=== PATIENT | male | born 1945 | race Caucasian/White ===

== ENCOUNTER 2023-04-06 14:55 | Outpatient (CLI) | payer OTHER, SELFPAY ==
--- NOTE | 2023-04-06 15:30 | CRLHL7_ITS ---
For Patients: As a result of the Century Cures Act, medical imaging exams and procedure reports are released immediately into your electronic medical record. You may view this report before your referring provider. If you have questions, please contact your health care provider. Indication: r/o recurrent ventral hernia to R of umbilicus, ABD PAIN Technique: CT Abdomen/Pelvis W/ISOVUE [id number] Please note that all CT scans at this facility use dose modulation, iterative reconstruction, and/or weight-based dosing when appropriate to reduce radiation dose to as low as reasonably achievable. Comparison: 08/06/2021 Findings: Calcifications in the coronary arteries. Trace pericardial effusion. Mild atelectasis/scarring in both lung bases. Small Bochdalek`s hernia contain fat on the right. No free intraperitoneal air. Diffuse low attenuation of the hepatic parenchyma. The gallbladder is filled with stones, as before. The spleen is within normal limits. Normal pancreas. The adrenal glands are normal. The kidneys are within normal limits. Atherosclerotic changes. No aneurysm. No hiatal hernia. The bladder is normal. No bowel obstruction. Excess stool in the cecum. No adenopathy. Similar appearance of the jejunum. Resolution of previously noted fluid within subcutaneous tissues of the abdominal wall in the midline. Supraumbilical abdominal wall hernia noted measuring 2.1 cm. Degenerative changes. No fracture. Impression: Postop changes to the anterior abdominal wall with resolution of previously noted fluid collections. Defect in the supraumbilical abdominal wall noted contain fat measuring 2.2 cm. Excess stool in the cecum consistent with cholelithiasis. Cholelithiasis, unchanged. Similar appearance of the jejunum. No mechanical bowel obstruction. Please note that all CT scans at this facility use dose modulation, iterative reconstruction, and/or weight-based dosing when appropriate to reduce radiation dose to as low as reasonably achievable. Dictated by Jordan Farah MD @ 04/07/2023 11:28:06 AM (Electronically Signed)
[2023-04-06 15:33] LABS: Creatinine* 0.6 mg/dL (0.5-1.5); Estimated Glomerular Filt Rate 99 ml/min
== END 2023-04-06 14:56 | disposition home or self-care (01) ==
PROVIDERS: Visit Provider Surgery
DX: R10.9 Unspecified abdominal pain (principal); K80.20 Calculus of gallbladder without cholecystitis without obstruction
CPT/HCPCS: 36415; 74177; 82565; Q9967

== ENCOUNTER 2023-05-17 09:09 | Day surgery (SDC) | payer OTHER, SELFPAY ==
[2023-05-17] VITALS (18 sets, daily range): BP systolic 117–166; BP diastolic 68–104; PULSE 58–78; RESP 12–20; TEMP 36.3–36.8; O2SAT 92–98; BMI 26.9
[2023-05-17] MEDS: LACTATED RINGERS 1000 ML 1,000 ML 100 ML IV (09:45)
[2023-05-17] MEDS: SODIUM CHLORIDE 0.9 % (FLUSH) 10 ML SYRINGE IVF (09:45)
[2023-05-17] MEDS: CEFAZOLIN 2 GM INJ IVP (10:08)
--- NOTE | 2023-05-17 11:18 | W.ANESCHARGE ---
Anesthesia Charges Start Date/Time Anesthesia Start Date: 05/17/23 Anesthesia Start Time: 09:57 Stop Date/Time Anesthesia Stop Date: 05/17/23 Anesthesia Stop Time: 12:45 Summary Extremes of Age - Over 70 or under 1: GLUE SPREADER
[2023-05-17] MEDS: BUPIVACAINE 0.25% 30 ML INJECTION (12:09)
--- NOTE | 2023-05-17 12:39 | P.GSOP_ITS ---
Operative Note Date of procedure: 05/17/23 Pre-op diagnosis: 1. Symptomatic recurrent incisional hernia. Post-op diagnosis: Same Type of Procedure: 1. Open incisional hernia repair with mesh 8 x 14 cm. Indications: 78-year-old male was seen in clinic with pain just to the right of his umbilicus. Patient had previous exploratory laparotomy with small-bowel resection in 2020. He subsequently developed an incisional hernia and underwent an open ventral hernia repair in June of 2021. Patient had large Ventralex ST mesh placed at that time. After the incisional hernia repair, patient had prolonged coughing and developed hematoma. Several months after he recovered from his surgery, he started to develop pain to the right of the his umbilicus. This was usually worse with strenuous activity and heavy lifting. The pain was getting more frequent and more bothersome. On clinical exam with the patient standing up there was an abdominal wall protuberance noted. Patient had redundant soft tissue around his umbilicus and was difficult to tell if there was hernia recurrence. There was a point tenderness to palpation just to the right of his umbilicus. An abdominal CT was obtained that showed mesh presents just immediately superior to the umbilicus with a hernia defect above the mesh. No intra-abdominal organs were incarcerated in the hernia. Given patient's clinical history and his symptoms, an open ventral hernia repair with mesh was recommended. The procedure was discussed in detail. The risks associated procedure including infection, bleeding, injury to intra-abdominal organs, and hernia recurrence, as well as prolonged pain were all discussed with the patient, and he agreed to proceed. Procedure Description: After discussing the risks and benefits of the procedure, the patient signed informed consent.? The operative site was marked and the patient was brought to the operating room and placed on the operating table in supine position.? Care was taken to pad the patient's pressure points.?? The patient was then intubated by anesthesia.?? The operative site was then prepped and draped in the usual sterile fashion.? A time-out was then performed. A vertical surgical incision was made superior to well-healed surgical scar. Dermis and subcutaneous fat were divided with cautery down to the hernia sac. The fascial defect was immediately identified. Soft tissues around the fascial defect were divided and dissected with cautery. Just inferior to the main fascial defect there was a smaller defect identified. The fascia in between 2 defect was then divided to create a common fascial defect. A then proceeded with developing a retro rectus space in the region plane superiorly. This was done with cautery. This plane was developed circumferentially. On the left muscle was attached to the posterior sheath and that was mobilized with cautery. Scar tissue was noted in the subcutaneous fat and near the fascia just superior to the umbilicus from patient's previous hernia repair. The previous mesh was palpated just superior to the umbilicus and preperitoneal space just posterior to the mesh was developed bluntly and with cautery. The main fascial defect was approximately 5 cm in diameter. The fascia was weak to palpation especially on the right side of the abdomen. When the retrorectus space was developed, peritoneum was opened and the peritoneum was palpated bluntly with the finger. Fatty adhesions were palpated to the right of the umbilicus but those were not taken down since our dissection was in the retrorectus space. The peritoneal opening was then oversewn with 3-0 Vicryl suture. Hemostasis again was achieved with cautery. The posterior sheath was closed with a running Vicryl suture. A Ventrio mesh 8 x 14 cm was then used for hernia repair. This mesh was oval- shaped and was placed into the retrorectus space with the long end in the medial-lateral direction. The mesh was secured to the fascia with 0-0 Nurolon transfascial sutures. Bleeding was noted from the left superior transfascial suture and that was oversewn with a Vicryl stitch. Local anesthetic was injected into the anterior fascia and subcutaneous fat. The weakened fascia was then oversewn with [id number] 0-0 Prolene sutures over the mesh. Minimal tension was noted in the center of this fascial closure. Subcutaneous fat was then reapproximated with Vicryl sutures. Dermis was closed with interrupted 3-0 Vicryl sutures. The skin was closed with a running 4-0 Monocryl stitch. Steri- Strips and sterile pressure dressings were placed over the incision. ? The patient was then woken and transported to the recovery area in stable condition. ? The patient tolerated the procedure well. Findings: The common fascial defect was approximately 5 cm in diameter. Scar was noted inferiorly from previous repair. The previously placed mesh was palpated and no fascial defect were identified right and left of the previously placed mesh. This new mesh that was placed overlapped the old mesh. Anesthesia: GETA Surgeon: David Thomas MD Estimated blood loss (mL): 10 Condition: stable Disposition: PACU
--- NOTE | 2023-05-17 12:39 | W.PM.H&PU ---
History & Physical Update History & Physical Update H&P Reviewed and patient assessed: No changes noted
--- NOTE | 2023-05-17 13:08 | W.ANESCHARGE ---
Anesthesia Charges Start Date/Time Anesthesia Start Date: 05/17/23 Anesthesia Start Time: 09:57 Stop Date/Time Anesthesia Stop Date: 05/17/23 Anesthesia Stop Time: 12:45 Summary Extremes of Age - Over 70 or under 1: MDA
--- NOTE | 2023-05-17 13:12 | SUR.PHASEI ---
patient meets pacu discharge criteria
[2023-05-17] MEDS: fentaNYL 100 MCG/2 ML inj 50 MCG IVP (13:30)
[2023-05-17] MEDS: LACTATED RINGERS 1000 ML 1,000 ML 75 ML IV (14:53)
[2023-05-17] MEDS: ACETAMINOPHEN 325 MG TABLET 650 MG PO (15:14)
[2023-05-17] MEDS: BENZOCAINE/MENTHOL 1 EACH LOZENGE MUCOUS MEM (17:29)
[2023-05-17] MEDS: HYDROCODONE-ACETAMIN 5-325 MG 1 TAB PO (17:33)
--- NOTE | 2023-05-17 19:24 | PC.NURSE ---
Nursing Care Hours: [id number] Pt this shift calm and cooperative, alert and oriented. Arrived from same day surgery, started hourly vitals. VSS. Pt hesitant to use opioids for pain control d/t getting really constipated last time. Added senna to MAR and discussed drinking water and walking frequently. Attempted to use just acetaminophen but pain was not relived and BP continuing to rise. Agreeable to use one [place] tab. Ice on abdomen. Dressing CDI. BS hypoactive, denies nausea. Up to bathroom x2.
[2023-05-17] MEDS: SENNOSIDES/DOCUSATE TABLET 1 TAB PO (20:48)
[2023-05-18] MEDS: HYDROCODONE-ACETAMIN 5-325 MG 1 TAB PO ×2 (02:16→09:07)
[2023-05-18 02:24] VITALS: BP 144/83; PULSE 75; RESP 20; TEMP 36.7; O2SAT 94
[2023-05-18] MEDS: LACTATED RINGERS 1000 ML 1,000 ML 75 ML IV (04:15)
[2023-05-18 08:15] VITALS: BP 130/85; PULSE 66; RESP 16; TEMP 36.9; O2SAT 92
--- NOTE | 2023-05-18 08:51 | P.DS_ITS ---
DS: Providers Provider Date Seen: 05/18/23 Primary care physician: Not a Local Provider Attending Physician on discharge: David Thomas MD DS: Diagnosis Discharge Diagnosis (1) S/P repair of ventral hernia: Status: Acute Problem details: with large ventralex mesh(retrorectus) 2020 and 2022 DS: Summary Hospital Course Hospital Course: 78-year-old male was admitted to the hospital for pain control after he u nderwent an open recurrent incisional hernia repair with mesh. Patient did well overnight. He urinated multiple times. He tolerated clears. His pain was controlled with p.o. medications. Time Spent with Patient Time attestation: Total time spent providing and/or coordinating discharge services: Exam Narrative: Exam Narrative: Abdomen is soft, not tender to palpation, not distended, surgical dressing over the midline incision is clean and dry. The binder was placed back on. Const: Vital Signs, click to edit/add: Vital Signs - 24 hr 05/17/23 09:31 05/17/23 12:40 05/17/23 12:45 Temperature 97.4 F L 97.8 F Pulse Rate 60 71 69 Pulse Rate [Right Pulse Oximeter] Respiratory Rate 16 16 14 Blood Pressure 162/104 H 117/68 128/71 Blood Pressure [Le ft Arm] Blood Pressure [Ri ght Arm] Pulse Oximetry 97 93 94 Oxygen Delivery Me thod Room Air Nasal Cannula Oxygen Flow Rate 2 1 05/17/23 12:50 05/17/23 12:55 05/17/23 13:00 Temperature Pulse Rate 70 65 65 Pulse Rate [Right Pulse Oximeter] Respiratory Rate 12 12 14 Blood Pressure 123/74 126/74 124/73 Blood Pressure [Le ft Arm] Blood Pressure [Ri ght Arm] Pulse Oximetry 94 94 92 Oxygen Delivery Me thod Room Air Oxygen Flow Rate 05/17/23 13:05 05/17/23 13:10 05/17/23 13:16 Temperature 98.2 F 98.0 F Pulse Rate 62 65 60 Pulse Rate [Right Pulse Oximeter] Respiratory Rate 16 16 16 Blood Pressure 126/70 126/73 129/75 Blood Pressure [Le ft Arm] Blood Pressure [Ri ght Arm] Pulse Oximetry 92 93 94 Oxygen Delivery Me thod Room Air Oxygen Flow Rate 05/17/23 13:30 05/17/23 13:45 05/17/23 14:00 Temperature Pulse Rate 59 L 60 59 L Pulse Rate [Right Pulse Oximeter] Respiratory Rate 16 16 16 Blood Pressure 127/77 124/80 130/75 Blood Pressure [Le ft Arm] Blood Pressure [Ri ght Arm] Pulse Oximetry 94 92 98 Oxygen Delivery Me thod Room Air Room Air Nasal Cannula Oxygen Flow Rate 05/17/23 14:15 05/17/23 14:30 05/17/23 15:30 Temperature 97.6 F 98 F Pulse Rate 58 L Pulse Rate [Right Pulse Oximeter] 59 L 64 Respiratory Rate 16 12 14 Blood Pressure 134/80 Blood Pressure [Le ft Arm] 147/85 H Blood Pressure [Ri ght Arm] 139/84 Pulse Oximetry 98 96 96 Oxygen Delivery Me thod Nasal Cannula Room Air Room Air Oxygen Flow Rate 05/17/23 16:30 05/17/23 17:30 05/17/23 19:00 Temperature 97.9 F Pulse Rate Pulse Rate [Right Pulse Oximeter] 70 71 78 Respiratory Rate 20 20 18 Blood Pressure Blood Pressure [Le ft Arm] 151/94 H 161/92 H Blood Pressure [Ri ght Arm] 166/96 H Pulse Oximetry 96 95 97 Oxygen Delivery Me thod Room Air Room Air Room Air Oxygen Flow Rate 05/18/23 02:24 Temperature 98.0 F Pulse Rate Pulse Rate [Right Pulse Oximeter] 75 Respiratory Rate 20 Blood Pressure Blood Pressure [Le ft Arm] Blood Pressure [Ri ght Arm] 144/83 H Pulse Oximetry 94 Oxygen Delivery Me thod Room Air Oxygen Flow Rate Discharge Plan Discharge Disposition: Home, Self-Care Discharging Surgeon: David Thomas Follow-Up Appointment: 2 weeks NF Prescriptions: New hydrocodone-acetaminophen 5-325 mg tablet 1 tab PO Q6H PRN (Reason: pain) Qty: 25 0RF Continued atorvastatin [Lipitor] 80 mg tablet 80 mg PO DAILY aspirin 81 mg tablet,delayed release (DR/EC) 81 mg PO DAILY thiamine HCl (vitamin B1) 100 mg tablet 100 mg PO DAILY ipratropium bromide 42 mcg (0.06 %) spray,non-aerosol 2 spray INTRANASAL 3XD PRN No Action lisinopril 20 mg tablet 20 mg PO DAILY cholecalciferol (vitamin D3) 25 mcg (1,000 unit) capsule 25 mcg PO DAILY Activity Level: No strenuous activity Activity Detail: No strenuous activity or lifting more than 15-20 lbs for 4-6 weeks. Discharge Diet: Regular Patient Instructions: Open Herniorrhaphy (DC), Surgical Site Infections (DC), Deep Sedation (DC), Post-Operative Instructions: Hernia Repair Forms: Work/School Release Follow-up: David Thomas MD [Staff Physician] - Provider,Not a Local [Primary Care Provider] - Discharge Orders: Discharge Order (Routine); Ordered 05/18/23 Ordered By: David Thomas
[2023-05-18] MEDS: ATORVASTATIN CALCIUM 40 MG TABLET 80 MG PO (09:06)
[2023-05-18] MEDS: SENNOSIDES/DOCUSATE TABLET 1 TAB PO (09:07)
[2023-05-18] MEDS: lisinopriL 20 MG TABLET PO (09:07)
[2023-05-18] MEDS: polyethylene glycoL 3350 17 GM PACK PO (11:00)
--- NOTE | 2023-05-18 14:11 | PC.NURSE ---
Please see eMar for meds provided to this patient. Eval by Dr. Weir, IV to SL. Pt UAL in room and hallway w/o increased c/o pain. Abdominal binder intact over CDI dressing. Pt and spouse verbalized understanding of d/c instructions, new RX, home meds, f/up appt and sx to report urgently to physician. Pt ambulatory d/c to own home with personal belongings and [place] friend as transportation.
== END 2023-05-18 11:25 | disposition home or self-care (01) ==
LOC: OR 09:11 → MEDSURG 09:14
PROVIDERS: Visit Provider Surgery
PROC: (CPT 49615; principal; 2023-05-17 10:30)
DX: K43.2 Incisional hernia without obstruction or gangrene (principal); G89.18 Other acute postprocedural pain
CPT/HCPCS: 49615; 00752; 36415; 51798; 74019; 74177; 80048; 81001; 83605; 85025; 87493; 99100; 99284; 99285; A9270; C1781; J0330; J0665; J0690; J1100; J2405; J2704; J3010; J3490; J7042; J7120; Q9967

== ENCOUNTER 2023-05-20 17:04 | Inpatient (IN) | payer MEDICARE, SELFPAY ==
[2023-05-20 17:11] VITALS: BP 138/83; PULSE 68; RESP 16; TEMP 36.9; O2SAT 94; BMI 27.1
--- NOTE | 2023-05-20 17:36 | ED.GENADULT ---
HPI - General Adult General Chief complaint: Urogenital Problems, Male Stated complaint: Post op difficulty urinating, heartburn Time Seen by Provider: 05/20/23 17:14 History of Present Illness HPI narrative: This 78-year-old male comes in reporting dysuria symptoms of urinary retention. He had a hernia repair 3 or 4 days ago and was doing well but started taking oxycodone and feels that this is contributed to difficulty passing urine. He states that he was able to of have a small amount come forth and noted that it seemed to be red with some blood. He has not had any fevers. He states that his pain is controlled despite not taking narcotics any longer. He does report a remote history of abdominal problems also when taking codeine. Related Data Home Medications Medication Instructions Recorded Confirmed aspirin 81 mg tablet,delayed 81 mg PO DAILY 11/17/22 05/20/23 release atorvastatin 80 mg tablet (Lipitor) 80 mg PO DAILY 11/17/22 05/20/23 ipratropium bromide 42 mcg (0.06 2 spray intranasal 3XD PRN 05/16/23 05/20/23 %) nasal spray thiamine HCl (vitamin B1) 100 mg 100 mg PO DAILY 05/16/23 05/20/23 tablet cholecalciferol (vitamin D3) 25 25 mcg PO DAILY 05/17/23 05/20/23 mcg (1,000 unit) capsule lisinopril 20 mg tablet 20 mg PO DAILY 05/17/23 05/20/23 Previous Rx's Medication Instructions Recorded hydrocodone 5 mg-acetaminophen 325 1 tab PO Q6H PRN pain #25 tabs 05/17/23 mg tablet Allergies Allergy/AdvReac Type Severity Reaction Status Date / Time codeine Allergy Severe Gastrointestinal Verified 05/20/23 17:19 Upset Review of Systems Status of ROS: Reports: 10 or more systems reviewed and unremarkable except as noted in History and below Narrative: Constitutional: No fevers, no weight gain or loss. Eyes: No discharge. No vision changes. HENT: No congestion, no sore throat, no ear pain. Cardiovascular: No chest pain, no palpitations. Respiratory: No shortness of breath, no wheezes, no cough. Gastrointestinal: No abdominal pain, no vomiting, no diarrhea. Genitourinary: Urinary retention and some hematuria. Musculoskeletal: Normal range of motion. Skin: No rashes, no pruritis. Neurological: No dizziness, weakness, sensory change, speech change. Endo/Heme/Allergies: No bruising or bleeding. No polydipsia. Pysch: no suicidality, no anxiety, no insomnia. All other systems reviewed and are negative. [facility] Medical History (Updated 05/20/23 @ 19:42 by Gianfranco Cole MD) Gilbert's syndrome ?E80.4 - Gilbert syndrome (ICD-10) Diverticular disease of small intestine ?K57.10 - Diverticulosis of small intestine without perforation or abscess without bleeding (ICD-10) Coronary artery disease ?I25.10 - Atherosclerotic heart disease of [place] coronary artery without angina pectoris (ICD-10) Atrial fibrillation with rapid ventricular response ?I48.91 - Unspecified atrial fibrillation (ICD-10) Bronchitis ?J40 - Bronchitis, not specified as acute or chronic (ICD-10) Surgical History (Updated 05/18/23 @ 08:52 by David Thomas MD) S/P repair of ventral hernia ?Z98.890 - Other specified postprocedural states (ICD-10) ?Z87.19 - Personal history of other diseases of the digestive system (ICD-10) Status post surgery ?Z98.890 - Other specified postprocedural states (ICD-10) Status post exploratory laparotomy ?Z98.890 - Other specified postprocedural states (ICD-10) Social History (Updated 03/30/23 @ 10:02 by Alan Mcmullen) Narrative: daily consumption of alcohol What is your current living situation?: I presently have a place to live Problems where you live: no known problems In the past 12 months, utilities in danger of being shut off: no In past 12 months, lack of transportation kept you from medical appts, meetings, work, or getting things needed for daily living: no In the past 12 mos, have been you worried that your food would run out before you had money to buy more?: never true In the past 12 mos, the food you bought just didn't last and you didn't have money to buy more?: never true Highest level of school completed/degree received: high school graduate Smoking Status: Never smoker Do you use any of these nicotine containing products: None Second hand tobacco smoke exposure: No How often do you have a drink containing alcohol: never How often do you have six or more drinks on one occasion: Never AUDIT-C Alcohol total score: 0 Non-prescribed substance use: denies use Caffeine: Yes How often does anyone, including family, friends and others, physically hurt you: never How often does anyone, including family, friends and others, insult or talk down to you: never How often does anyone, including family, friends and others, threaten you with harm: never How often does anyone, including family, friends and others, scream or curse at you: never service: Yes Exam Narrative: Exam Narrative: Constitutional: Well-developed, well-nourished, no acute distress. HEENT: Normocephalic, atraumatic. Neck: Normal range of motion. Nontender. Supple. Heart: Regular. No murmurs. Normal rate. Intact distal pulses. Lungs: Clear to auscultation. No chest discomfort. No wheezes, rhonchi, or rales. Abdomen: Normal bowel sounds. He is wearing an abdominal binder status post hernia repair in the abdomen. Genitalia: Deferred. Back: No midline tenderness. Normal range of motion. Extremities: Normal range of motion. No injury. Skin: Intact. No rash. Warm. No erythema or pallor. Neurologic: No altered sensation. No weakness. Alert and oriented. Psychiatric: No suicidality. No anxiety or depression. No insomnia. Nursing notes and vitals signs are reviewed. Const: Vital Signs, click to edit/add: Vital Signs - 24 hr 05/20/23 17:11 Temperature 98.4 F Pulse Rate [Right Pulse Oximeter] 68 Respiratory Rate 16 Blood Pressure [Ri ght Upper Arm] 138/83 Pulse Oximetry 94 Oxygen Delivery Me thod Room Air Course Vital Signs Vital signs: Initial Vital Signs Temperature 98.4 F 05/20/23 17:11 Temperature Source Temporal Artery Scan 05/20/23 17:11 Pulse Rate 68 05/20/23 17:11 Respiratory Rate 16 05/20/23 17:11 Blood Pressure 138/83 05/20/23 17:11 Blood Pressure Mean 101 05/20/23 17:11 Pulse Oximetry 94 05/20/23 17:11 Oxygen Delivery Method Room Air 05/20/23 17:11 Vital Signs Temperature 98.4 F 05/20/23 17:11 Pulse Rate 68 05/20/23 17:11 Respiratory Rate 16 05/20/23 17:11 Blood Pressure 138/83 05/20/23 17:11 Pulse Oximetry 94 05/20/23 17:11 Oxygen Delivery Method Room Air 05/20/23 17:11 Temperature 98.4 F 05/20/23 17:11 Pulse Rate 68 05/20/23 17:11 Respiratory Rate 16 05/20/23 17:11 Blood Pressure 138/83 05/20/23 17:11 Pulse Oximetry 94 05/20/23 17:11 Oxygen Delivery Method Room Air 05/20/23 17:11 Medical Decision Making MDM Narrative Medical decision making narrative: This patient comes in thinking that he has urinary retention. He did have a hernia surgery recently and states that he did take a few tablets of oxycodone. He reports a previous surgical situation where he was admitted into the hospital until his bowels started working again. A bladder scan is obtained which shows no sign of urinary retention. There was 15 or 20 mL of urine in the bladder. I did obtain a abdominal x-ray which does show air-fluid levels typical of a ileus or obstruction. I did speak with the surgeon on-call, Dr. Whitney, who will follow him in the hospital. A IV is established and labs are acquired. The patient is going to receive CT scan imaging of the abdomen and pelvis for further evaluation of this. And I did speak with Dr. Zuluaga who agrees to his admission into the hospital. Lab Data Labs: Lab Results 05/20/23 Range/Units 17:52 Urine Color Yellow (Yellow) Urine Appearance Clear (Clear) Urine pH 5.5 (5.0-8.5) Ur Specific [place] >= 1.030 (1.000-1.030) Urine Protein Trace A (Negative) Urine Glucose (UA) Negative (Negative) Urine Ketones 3+ A (Negative) Urine Blood Trace-lysed A (Negative) Urine Nitrite Negative (Negative) Urine Bilirubin 2+ A (Negative) Urine Urobilinogen 1.0 (0.2-1.0) Ur Leukocyte Esterase Negative (Negative) Urine RBC 0-2 (0-2) Urine WBC 0-2 (0-5) Ur Squamous Epith Cells Few (None-Few) Urine Bacteria None (None) Imaging Data Abdominal x-ray: Radiologist's impression: Free intraperitoneal air. Has there been recent surgery?. Air-filled moderately dilated predominantly small bowel loops with multiple air-fluid levels could represent ileus or obstruction. Discharge Plan Discharge Clinical Impression: Ileus, postoperative Patient Disposition: Admitted As Observation Condition: Unchanged Prescriptions: No Action atorvastatin [Lipitor] 80 mg tablet 80 mg PO DAILY aspirin 81 mg tablet,delayed release (DR/EC) 81 mg PO DAILY thiamine HCl (vitamin B1) 100 mg tablet 100 mg PO DAILY ipratropium bromide 42 mcg (0.06 %) spray,non-aerosol 2 spray INTRANASAL 3XD PRN hydrocodone-acetaminophen 5-325 mg tablet 1 tab PO Q6H PRN (Reason: pain) Qty: 25 0RF lisinopril 20 mg tablet 20 mg PO DAILY cholecalciferol (vitamin D3) 25 mcg (1,000 unit) capsule 25 mcg PO DAILY Follow Up/Referrals: Provider,Not a Local [Primary Care Provider] -
--- NOTE | 2023-05-20 17:45 | CRLHL7_ITS ---
For Patients: As a result of the Century Cures Act, medical imaging exams and procedure reports are released immediately into your electronic medical record. You may view this report before your referring provider. If you have questions, please contact your health care provider. INDICATION: Ileus TECHNIQUE: Three view abdomen. FINDINGS: Multiple air-fluid levels and a dilated air-filled bowel small bowel measures 4.6 centimeters. There is dilated loop in the right abdomen which could be small bowel or colon lack of bowel gas distally. There is free air present. Impression: 1. Free intraperitoneal air. Has there been recent surgery?. Air-filled moderately dilated predominantly small bowel loops with multiple air-fluid levels could represent ileus or obstruction. Dictated by Elizabeth La MD @ 05/20/2023 6:47:07 PM (Electronically Signed)
--- NOTE | 2023-05-20 17:47 | ED.NURSE ---
Bladder scanned and very small amount noted in the bladder. 10-15 cc of urine. patient is attempting to leave a UA and updated Dr. Cole of patient not passing any flatus.
--- OUTSIDE RECORDS SUMMARY | 2023-05-20 18:11 | XMS_ITS | Continuity of Care Document ---
Author Name Unknown Organization [facility] Address [address] [address] [place] [address] Phone Care Team Providers Care Acetylene Operator Name Role Phone Aureliano Olmedo MD Unavailable Allergies, Adverse Reactions, Alerts Substance Reaction Status Criticality codeine Active No Information Medications Medication Instructions Dosage Effective Dates (start - stop) Status Comments Vitamin D3 1,000 unit capsule take 1 by Oral route every day 1 - Active Lipitor 80 mg tablet take 1 tablet by oral route every day 80 MG - Active Vitamin C 500 mg capsule,extended release take 1 Capsule by Oral route every day 1 Capsule - Active Aller-ease 60 mg tablet take 1 tablet by oral route every day 60 MG - Active aspirin 81 mg tablet,delayed release take 1 tablet by oral route every day 81 MG - Active Foltrate 0.5 mg-1 mg tablet take 1 tablet by oral route every day 1.00 tablet - Active Glucosamine 500 mg tablet take by Oral route every day Not Available - Active Allergy 25 mg tablet take 1 Tablet by oral route every day as needed 25 MG - No Longer Active MiralaxBisacodylMagCit Colon Prep Use as directed - No Longer Active Vitamin D2 50,000 unit capsule take 1 by Oral route every week 1 - No Longer Active Lipitor 10 mg tablet take 1 Tablet by ORAL route every day 10 MG - No Longer Active Procedures Procedure Date Colonoscopy Flex; W/remov Les- 17 Level Iv-surg Path Gross/micro 17 Colonoscopy Flex; W/remov Les- 15 Colonoscopy W/Submucosal Injection Level Iv-surg Path Gross/micro 15 Offic/outpt E&m New Mod-wy Advance Directives Directive Yes / No Effective Date File Name No Information Encounters Encounter Description Practice Location Reason(s) For Visit Diagnoses Date Provider Providers Copied on Encounter [facility] [place], [address] [address], [place], [id number], [place] tel:[phone] [facility] Colorectal polypsDiverticulo sis of large intestine without hemorrhagePersona l history of colonic polypsEncounter for screening for malignant neoplasm of colonBenign neoplasm of transverse colonBenign neoplasm of descending colonPersonal history of colonic polyps 7 Honorio Bedoya. [address] [facility], [facility] [address], [place], [place], [address] , [place]. tel:[phone] Referring Provider: Referral Self, USE FOR SELF REFERRALS. [facility] [place], [address] [address], [place], [id number], [place] tel:[phone] [facility] No Information 7 Moi Fink. [address] [facility], [place], [place], [id number] , [place]. tel: [phone] [facility] [place], [address] [address], [place], [id number], [place] tel:[phone] [facility] Colon polypBenign Neoplasm Colon 5 Honorio Bedoya. [address] [facility], [address], [place], [place], [id number] , [place]. tel:[phone] Referring Provider: Aaron Elliott, [address], [place], [address]. tel:[phone] Offic/outpt E&m [facility] [place], [address] [address], [place], [id number], [place] tel:[phone] [facility] GI Symptoms or Concerns (chief complaint) HoarsenessColon Cancer Screening 5 Honorio Bedoya. [address] [facility], [facility] [address], [place], [place], [id number] , [place]. tel:[phone] Referring Provider: Aaron Elliott, [address], [place], [address]. tel:[phone] Family History Family Member Type Diagnosis Age At Onset Daughter Problem (finding) Alive and well Sister Problem (finding) Alive and well Mother Problem (finding) Brother Problem (finding) Alive and well Son Problem (finding) Alive and well Father Problem (finding) Immunizations Vaccine Date Status Comments Influenza virus vaccine, injectable, quadrivalent, split virus, preservative free, 3 years or older Fluarix, Flulaval or Fluzone Quad administered Note: Invalid docume nted admin date was NULL/NULL/2014. ; Source: Other Provider Pneumo (2 yrs or older)(PPV) administered Note: Invalid documented admin date was NULL/NULL/2014. ; Source: Other Provider Payers Payer name Insurance type Covered alliance party ID Authoriza tion(s) [employer] [id number] Social History Type Description Quantity Date Captured Comments Alcohol Use Details Unknown Caffeine Use Details Unknown Tobacco Use Status No Information Smoking Status Former smoker Sex Male Vital Signs Date / Time: Height Weight BMI Pulse Rate Blood Pressure Temperature Respiratory Rate Body Surface Area Head Circumference Head Circ. Percentile Wt./Mick. Percentile BMI percentile Pulse Ox Inhaled Ox 9:12 AM 67.00 in 77.100 kg (170.00 lbs) 26.6 0 kg/m eter (2) 67 /min 135/90 mm[Hg] 0.00 F 16 /min 98 % Chief Complaint And Reason For Visit No Information Reason For Referral Reason For Referral No Information History Of Present Illness Encounter Date Complaint History Of Prese nt Illness GI Symptoms or Concerns Abram is a 69-year-old man who we are seeing because of possible reflux. By history, he was well but earlier in the year he developed what he describes as a sore throat. It was burning sensation felt above the clavicles in the neck. With these symptoms, he was seen by ENT and told that he might have reflux. He denies any symptoms or regurgitation or types of dyspepsia. No associated dysphagia.When seen by ENT, he was placed on omeprazole once a day and ranitidine. With this, actually the symptoms have abated. Again he is without other problems.I note that he has been followed by Dr. Aaron Majano in the past. He is otherwise doing well. He has had no change in bowel habits, bleeding, weight loss, jaundice, and an otherwise in good health.He is allergic to codeine. His medication list at this point includes aspirin, folic acid, glucosamine, Lipitor, omeprazole, ranitidine, and vitamin D. In terms of other medical problems, he does have a cardiac stent and hyperlipide Functional Status Date Functional Assessmen t No Information Medications Administered Medication Instructions Dosage Effective Dates (start - stop) Status Comments Allergy 25 mg tablet take 1 Tablet by oral route every day as needed 25 MG - No Longer Active Instructions Date Instruction Additional Infor mation Colon Cancer Prevention Related to Diverticulosis of large intestine without hemorrhage Colon Polyps Related to Diver ticulosis of large intestine without hemorrhage Diverticulosis/Diverticulitis Re lated to Diverticulosis of large intestine without hemorrhage Colon Cancer Prevention Related to Colon polyp Colon Polyps Related to Colon polyp Hemorrhoids Related to Colon polyp The patient's discom fort is in the neck. It really seems more ENT than reflux at this stage, however, clinically it is hard to argue that he is feeling better. I have suggested that he stop the ranitidine, and stay on the omeprazole and we can see at some point about tapering, he has only had symptoms for a few years. If his symptoms recur, then I would move towards endoscopy. He has no worrisome signs.Lastly, we talked about colon cancer screening. He actually has an appointment coming up and this can be arranged.We appreciate assisting in this patient's care. Related to Hoarseness Assessments Type Assessment Date assessment Colorectal polyps assessment Diverticulosis of large intestin e without hemorrhage assessment Personal history of colonic poly ps Patient Care Teams Name Effective Dates (start - stop) Status Members No Information
[2023-05-20 18:13] LABS: Appearance Urine Clear (Clear); Bilirubin Urine 2+ (Negative); Blood Urine Trace-lysed (Negative); Color Urine Yellow (Yellow); Glucose Urine Negative (Negative); Ketones Urine 3+ (Negative); Leukocyte Esterase Urine Negative (Negative); Nitrite Urine Negative (Negative); Protein Urine Trace (Negative); Specific Gravity Urine >= 1.030 (1.000-1.030); pH Urine 5.5 (5.0-8.5)
[2023-05-20 18:24] LABS: RBC Urine 0-2 (0-2); Squamous Epithelial Cell Urine Few (None-Few); WBC Urine 0-2 (0-5)
--- NOTE | 2023-05-20 19:01 | ED.NURSE ---
patient given permission for staff to talk to daughter so update was given. can be reached at [phone].
[2023-05-20 19:17] VITALS: BP 164/93; PULSE 71; RESP 16; O2SAT 94
--- NOTE | 2023-05-20 19:18 | CRLHL7_ITS ---
For Patients: As a result of the 21st Century Cures Act, medical imaging exams and procedure reports are released immediately into your electronic medical record. You may view this report before your referring provider. If you have questions, please contact your health care provider. INDICATION: Hernia repair on 05/17/2023. dysuria, hematuria, post op ileus v. obstruction, DIVERTICULAR DISEASE OF SMALL INTESTINE, Gilbert`s SYNDROME TECHNIQUE: CT abdomen and pelvis acquired with 82 cc Isovue 370 IV contrast. Permanently recorded images are archived. COMPARISON: CT abdomen and pelvis 04/06/2023 FINDINGS: Lower chest: Mild atelectasis in the bases of the lower lobes. Coronary artery calcification. Liver: Unremarkable. Normal in size and attenuation. No suspicious masses. Gallbladder and bile ducts: Cholelithiasis. No inflammation or biliary ductal dilation. Pancreas: Unremarkable. No mass or inflammation. Spleen: Unremarkable. Normal in size. No masses. Adrenal glands: Unremarkable. No nodules. Kidneys, Ureters, and Bladder: Unremarkable. No suspicious masses, stones, or hydronephrosis. Unremarkable ureters and bladder. GI tract: Multiple dilated loops of small bowel with air-fluid levels, predominantly in the left te abdomen. The bowel loops measure up to 3.5 cm. There is a smooth transition to decompressed distal ileum in the left lower quadrant. The colon is decompressed. No pneumatosis. Normal appendix. Vasculature: Normal caliber abdominal aorta with severe atherosclerotic calcification. Mesenteric arteries are patent. Lymph nodes: No lymphadenopathy. Peritoneum/Abdominal Wall: Small volume pneumoperitoneum. Subcutaneous emphysema and inflammatory stranding about the anterior abdominal wall, particularly the midline. Wide thin fluid collection between the anterior abdominal wall musculature and the peritoneal lining in the anterior abdomen in the midline, measuring 9.3 cm 1.0 cm, series 2, image 80. Pelvis: Prostatomegaly. Bones: Unremarkable for age. IMPRESSION: 1. Postsurgical changes of the anterior abdominal wall, compatible with recent hernia repair. Wide thin fluid collection in the surgical bed, likely represents a postoperative seroma/hematoma. Cannot entirely exclude superimposed infection/abscess. 2. Multiple dilated loops of small bowel with air-fluid levels with a smooth transition to decompressed distal ileum in the left lower quadrant. This is most compatible with a postoperative ileus. 3. Cholelithiasis. Please note that all CT scans at this facility use dose modulation, iterative reconstruction, and/or weight-based dosing when appropriate to reduce radiation dose to as low as reasonably achievable. Dictated by Jovani Sosa MD @ 05/20/2023 9:11:25 PM (Electronically Signed)
[2023-05-20 19:40] LABS: Basophils Absolute Auto 0.01 K/uL (0.00-0.30); Basophils Percent Auto 0.2 % (0.0-3.0); Eosinophils Absolute Auto 0.04 K/uL (0.00-0.50); Eosinophils Percent Auto 0.7 % (0.0-7.0); Hematocrit 37.1 % (37.0-53.0); Hemoglobin* 12.7 gm/dL (13.5-17.5); Lymphocytes Percent Auto 15.1 % (20-44); Mean Corpuscular HGB Conc 34 gm/dL (32-36); Mean Corpuscular Hemoglobin 31 pg (26-34); Mean Corpuscular Volume 90 fL (80-100); Monocytes Percent Auto 12.5 % (0.0-11.0); Neutrophils Absolute Auto 3.87 K/uL (1.7-7.0); Neutrophils Percent Auto 71.5 % (42.0-72.0); Platelet Count* 181 K/uL (140-440); RDW Coefficient of Variation % 13.7 % (11.5-15.5); Red Blood Count 4.12 m/uL (4.30-5.90); White Blood Count* 5.42 K/uL (4.50-11.00)
[2023-05-20 19:42] LABS: Slide Review Reflex No
[2023-05-20 19:49] LABS: Chloride* 96 mmol/L (96-114); Potassium* 4.5 mmol/L (3.6-5.1); Sodium* 131 mmol/L (135-149)
[2023-05-20 19:52] LABS: Anion Gap 11 mEq/L (7-15); Blood Urea Nitrogen* 17 mg/dL (7-30); Carbon Dioxide* 24 mmol/L (20-32); Creatinine* 0.6 mg/dL (0.5-1.5); Est. Creatinine Clearance* 54.05; Estimated Glomerular Filt Rate 98 ml/min
[2023-05-20 19:53] LABS: Calcium* 8.9 mg/dL (8.4-10.6); Glucose* 112 mg/dL (60-115)
--- NOTE | 2023-05-20 20:13 | ED.NURSE ---
Given report to Kelli Taylor who will resume care on the patient. Admit to room 259 via wc and belongings brought to room of pants, shirt, shoes.
[2023-05-20 21:05] VITALS: BP 165/95; PULSE 78; RESP 16; TEMP 37.2; O2SAT 98; BMI 26.3
--- NOTE | 2023-05-20 21:12 | PM.IMHP1 ---
Hospitalist- H&P: HPI History of Present Illness Date Seen: 05/20/23 Chief complaint: Post op difficulty urinating Narrative: Satnam Barfield is a 78 year old male who underwent ventral hernia repair 3 days ago is admitted through the emergency department for difficulty with abdominal distension, trouble urinating and having no bowel movement since surgery. Patient had previous hernia repair a couple years ago with complications. He had a hematoma on subsequently developed a recurrent hernia. Procedure was performed [address] Thomas. He felt fine after surgery and went home the next day, Tuesday. Later on Tuesday he started developing mid abdominal pain and abdominal distension. He has not been passing gas or had a bowel movement since surgery. He was also noting that his urine was quite dark and he was having difficulties voiding. He has taken oxycodone 5 mg every 6 hours since surgery. His last dose was last night. He does report that some 30 years ago he had a problem with codeine causing an ileus or bowel obstruction. That resolved by just stopping the codeine and being treated in the hospital for a day or 2. No other previous history of bowel obstruction. No other abdominal surgeries except his to hernia or surgeries. His abdominal pain is manageable. He has nausea and abdominal distension but no vomiting. He has not had a fever. He has been eating and drinking but not much in the last 2 days. Review of Systems Narrative: Review of systems is negative except as noted above. He has no other symptoms of illness recently. [facility] Medical History Gilbert's syndrome ?E80.4 - Gilbert syndrome (ICD-10) Diverticular disease of small intestine ?K57.10 - Diverticulosis of small intestine without perforation or abscess without bleeding (ICD-10) Coronary artery disease ?I25.10 - Atherosclerotic heart disease of augustine coronary artery without angina pectoris (ICD-10) Atrial fibrillation with rapid ventricular response ?I48.91 - Unspecified atrial fibrillation (ICD-10) Bronchitis ?J40 - Bronchitis, not specified as acute or chronic (ICD-10) Surgical History S/P repair of ventral hernia ?Z98.890 - Other specified postprocedural states (ICD-10) ?Z87.19 - Personal history of other diseases of the digestive system (ICD-10) Status post surgery ?Z98.890 - Other specified postprocedural states (ICD-10) Status post exploratory laparotomy ?Z98.890 - Other specified postprocedural states (ICD-10) Family History (Updated 05/20/23 @ 21:18 by Dean Zuluaga MD) Father Coronary artery disease Social History (Updated 05/20/23 @ 21:19 by Dean Zuluaga MD) Narrative: He lives in [place] with his . He does not smoke. He drinks 2 beers a day. He does not use recreational drugs. He still works buying and selling and repairing cars. Code status is full. and son are healthcare power of warehouse representative What is your current living situation?: I presently have a place to live Problems where you live: no known problems In the past 12 months, utilities in danger of being shut off: no In past 12 months, lack of transportation kept you from medical appts, meetings, work, or getting things needed for daily living: no In the past 12 mos, have been you worried that your food would run out before you had money to buy more?: never true In the past 12 mos, the food you bought just didn't last and you didn't have money to buy more?: never true Highest level of school completed/degree received: high school graduate Smoking Status: Never smoker Do you use any of these nicotine containing products: None Second hand tobacco smoke exposure: No How often do you have a drink containing alcohol: never How often do you have six or more drinks on one occasion: Never AUDIT-C Alcohol total score: 0 Non-prescribed substance use: denies use Caffeine: Yes How often does anyone, including family, friends and others, physically hurt you: never How often does anyone, including family, friends and others, insult or talk down to you: never How often does anyone, including family, friends and others, threaten you with harm: never How often does anyone, including family, friends and others, scream or curse at you: never service: Yes Meds Home Medications and Allergies Home Medications Medication Instructions Recorded Confirmed Type aspirin 81 mg tablet,delayed 81 mg PO DAILY 11/17/22 05/20/23 History release atorvastatin 80 mg tablet (Lipitor) 80 mg PO DAILY 11/17/22 05/20/23 History ipratropium bromide 42 mcg (0.06 2 spray intranasal 3XD PRN 05/16/23 05/20/23 History %) nasal spray thiamine HCl (vitamin B1) 100 mg 100 mg PO DAILY 05/16/23 05/20/23 History tablet cholecalciferol (vitamin D3) 25 25 mcg PO DAILY 05/17/23 05/20/23 History mcg (1,000 unit) capsule lisinopril 20 mg tablet 20 mg PO DAILY 05/17/23 05/20/23 History Allergies Allergy/AdvReac Type Severity Reaction Status Date / Time codeine Allergy Severe Gastrointestinal Verified 05/20/23 20:11 Upset Exam Narrative: Exam Narrative: He is alert and appears in no distress. He gives his own history. Eyes normal. Oropharynx normal. Neck is supple without mass or adenopathy. Respirations are clear to auscultation. No wheezing rales rhonchi. Cardiovascular: S1, S2, regular rate and rhythm. Abdomen: Bowel sounds are diminished. Abdomen is somewhat distended. Abdominal incision is well healing without erythema redness. He has firmness to the skin around the incision with out warmth or induration. No peritonitis. External genitalia normal. Extremities with trace edema bilaterally. Intact pedal pulses. Const: Vital Signs, click to edit/add: Vital Signs - 24 hr 05/20/23 17:11 05/20/23 19:17 Temperature 98.4 F Pulse Rate [Right Pulse Oximeter] 68 71 Respiratory Rate 16 16 Blood Pressure [Ri ght Upper Arm] 138/83 164/93 H Pulse Oximetry 94 94 Oxygen Delivery Me thod Room Air Room Air Documenting provider has reviewed patient's vital signs: yes Hospitalist - H&P: Result Labs Labs: Short CBC 05/20/23 Range/Units 19:28 WBC 5.42 (4.50-11.00) K/uL Hgb 12.7 L (13.5-17.5) gm/dL Hct 37.1 (37.0-53.0) % Plt Count 181 (140-440) K/uL BMP 05/20/23 19:28 Sodium 131 L Potassium 4.5 Chloride 96 Carbon Dioxide 24 BUN 17 Creatinine 0.6 Glucose 112 Calcium 8.9 Urine 12/22/23 Range/Units 17:52 Urine Color Yellow (Yellow) Urine Appearance Clear (Clear) Urine pH 5.5 (5.0-8.5) Ur Specific [place] >= 1.030 (1.000-1.030) Urine Protein Trace A (Negative) Urine Glucose (UA) Negative (Negative) Assessment and Plan Assessment and plan (1) Ileus, postoperative: Problem comment: Appears to have postoperative ileus from hernia repair surgery. NPO, IV fluids, surgical consult Status: Acute (2) S/P repair of ventral hernia: Problem comment: with large ventralex mesh(retrorectus) 2020 and May 17 2023 Status: Acute (3) Incisional hernia: Status: Acute (4) Coronary artery disease: Problem comment: stents 1999 LAD, 2003 circumflex. Currently asymptomatic Status: Acute Plan Patient is admitted to the hospital for IV fluids and monitoring and managing postoperative ileus. Total time spent today is 65 minutes, 40 minutes in coordination of care and discussing with patient and other providers ongoing evaluation management of postoperative ileus
[2023-05-20] MEDS: 5 % DEXTROSE/0.9% SOD CHLORIDE 1,000 ML 125 ML IV (22:00)
[2023-05-20] MEDS: lisinopriL 20 MG TABLET PO (22:00)
[2023-05-20] MEDS: ATORVASTATIN CALCIUM 40 MG TABLET 80 MG PO (22:00)
[2023-05-20 22:51] VITALS: BP 153/82; PULSE 74; RESP 20; TEMP 37.2; O2SAT 96
--- NOTE | 2023-05-21 01:51 | PC.NURSE ---
ADMISSION NOTE: Pt A&O, afebrile, VSS on RA. Reported pain 2-3/10, declined need for pain medication. Pt abdominal incision from his hernia repair on 05/17/23 has steri strips that are C/D/I, abdominal binder on. Pt reports he hadn't had a bowel movement or passed gas since the morning of the , however, has now had 2 small loose continent BM's since his admission. Pt up independent and steady on his feet. Denies SOB, CP, and N/V. Pt NPO.
[2023-05-21 02:48] VITALS: BP 159/72; PULSE 72; RESP 16; TEMP 36.9; O2SAT 97
--- NOTE | 2023-05-21 04:50 | PC.NURSE ---
RN took over Pt @ 0200. Pt voided 1x unmeasured. Had 1 small loose BM. Up IND. Afebrile.
[2023-05-21] MEDS: 5 % DEXTROSE/0.9% SOD CHLORIDE 1,000 ML 125 ML IV ×3 (05:05→21:09)
[2023-05-21 06:57] LABS: Lactate* 0.7 mmol/L (0.5-1.9)
[2023-05-21 07:02] LABS: Basophils Absolute Auto 0.01 K/uL (0.00-0.30); Basophils Percent Auto 0.2 % (0.0-3.0); Eosinophils Absolute Auto 0.08 K/uL (0.00-0.50); Eosinophils Percent Auto 1.8 % (0.0-7.0); Hematocrit 35.2 % (37.0-53.0); Lymphocytes Absolute Auto 0.93 K/uL (0.90-2.90); Lymphocytes Percent Auto 20.5 % (20-44); Mean Corpuscular HGB Conc 34 gm/dL (32-36); Mean Corpuscular Hemoglobin 31 pg (26-34); Mean Corpuscular Volume 91 fL (80-100); Neutrophils Absolute Auto 2.93 K/uL (1.7-7.0); Neutrophils Percent Auto 64.5 % (42.0-72.0); Platelet Count* 184 K/uL (140-440); RDW Coefficient of Variation % 13.8 % (11.5-15.5); Red Blood Count 3.89 m/uL (4.30-5.90); White Blood Count* 4.54 K/uL (4.50-11.00)
[2023-05-21 07:34] LABS: Chloride* 100 mmol/L (96-114); Potassium* 4.1 mmol/L (3.6-5.1); Sodium* 132 mmol/L (135-149)
[2023-05-21 07:37] LABS: Anion Gap 7 mEq/L (7-15); Blood Urea Nitrogen* 16 mg/dL (7-30); Calcium* 8.4 mg/dL (8.4-10.6); Carbon Dioxide* 25 mmol/L (20-32); Creatinine* 0.6 mg/dL (0.5-1.5); Est. Creatinine Clearance* 54.05; Estimated Glomerular Filt Rate 98 ml/min; Glucose* 149 mg/dL (60-115)
[2023-05-21 08:35] VITALS: BP 149/88; PULSE 72; RESP 14; TEMP 36.1; O2SAT 97
--- NOTE | 2023-05-21 08:47 | PC.NURSE ---
Addendum entered by Lynne Escobedo RN 05/21/23 10:26: before trying liquids has a small emesis. stated felt hot. resolved quickly. washcloth applied to forhead. declined nausea or nausea meds. md aware. plan take it slowly with liquids. if improving poss discharge later todayl Addendum entered by Lynne Escobedo RN 05/21/23 08:54: States was nauseated this am but not bad on asstment. Original Note: Alert and oriented. ls clear. heart reg. vs wnl. altho bp sl elevated at times. 144/88 at rest this am. note. took his Lisinopril 20mg as ordered last evening. Up in the perez often. abd distended. hypo bs. denies flatus yuki had 2 small bm last night per RN and pt. Per night RN pt had 3 voids. This am voided. abd binder with comfort. put light on 2x in a hour wanting to know when DrJoaquim will see him. He states he wants to get things going.
--- NOTE | 2023-05-21 09:25 | P.GSCN_ITS ---
History of Present Illness Consult details Date Seen: 05/21/23 Consult date: 05/21/23 Narrative: Abram was readmitted yesterday with ileus after repair of ventral hernia on Tuesday. He had pain which required him to stay overnight in the hospital. On postop day 1 he was discharged home. Yesterday he called the hospital as he was having issues with urinary retention. He had not yet had a bowel movement. I had spoken to him and he stated that his urinary retention was improved. I reassured him that it was normal to not have had a bowel movement yet on postop day 3. Overnight he felt worse and presented to the emergency department. There x-ray showed possible bowel obstruction. CT scan revealed that this was likely a postoperative ileus. Today Abram feels better. He had multiple bowel movements today. One of them was quite large. His nausea improved after this. He states that his pain is controlled. He thinks the narcotic pain medications cause all of his issues. He previously had a bowel obstruction or ileus from codeine on a prior hospital stay. He has stopped taking pain meds and states that this pain is improved enough that he does not need them. He has no concerns about the incision. He would like to try eating something. He is wondering if he can discharge later today. He does feel that his abdomen is still more distended than his baseline. 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 - Diverticulosis of small intestine without perforation or abscess without bleeding (ICD-10) Coronary artery disease ?I25.10 - Atherosclerotic heart disease of upper [place] coronary artery without angina pectoris (ICD-10) Atrial fibrillation with rapid ventricular response ?I48.91 - Unspecified atrial fibrillation (ICD-10) Bronchitis ?J40 - Bronchitis, not specified as acute or chronic (ICD-10) Surgical History S/P repair of ventral hernia ?Z98.890 - Other specified postprocedural states (ICD-10) ?Z87.19 - Personal history of other diseases of the digestive system (ICD-10) Status post surgery ?Z98.890 - Other specified postprocedural states (ICD-10) Status post exploratory laparotomy ?Z98.890 - Other specified postprocedural states (ICD-10) Family History (Updated 05/20/23 @ 21:18 by Dean Zuluaga MD) Father Coronary artery disease Social History (Updated 05/20/23 @ 21:19 by Dean Zuluaga MD) Narrative: He lives in [place] with his . He does not smoke. He drinks 2 beers a day. He does not use recreational drugs. He still works buying and selling and repairing cars. Code status is full. and son are healthcare power of erisa attorney What is your current living situation?: I presently have a place to live Problems where you live: no known problems Problems where you live details: n/a In the past 12 months, utilities in danger of being shut off: no In past 12 months, lack of transportation kept you from medical appts, meetings, work, or getting things needed for daily living: no In the past 12 mos, have been you worried that your food would run out before you had money to buy more?: never true In the past 12 mos, the food you bought just didn't last and you didn't have money to buy more?: never true Highest level of school completed/degree received: high school graduate Smoking Status: Never smoker Do you use any of these nicotine containing products: None Second hand tobacco smoke exposure: No How often do you have a drink containing alcohol: never How many standard drinks containing alcohol do you have on a typical day: 1 or 2 How often do you have six or more drinks on one occasion: Never AUDIT-C Alcohol total score: 0 Non-prescribed substance use: denies use Caffeine: Yes How often does anyone, including family, friends and others, physically hurt you : never How often does anyone, including family, friends and others, insult or talk down to you: never How often does anyone, including family, friends and others, threaten you with harm: never How often does anyone, including family, friends and others, scream or curse at you: never service: Yes Meds Home Medications and Allergies Home Medications Medication Instructions Recorded Confirmed Type aspirin 81 mg tablet,delayed 81 mg PO DAILY 11/17/22 05/20/23 History release atorvastatin 80 mg tablet (Lipitor) 80 mg PO DAILY 11/17/22 05/20/23 History ipratropium bromide 42 mcg (0.06 2 spray intranasal 3XD PRN 05/16/23 05/20/23 History %) nasal spray thiamine HCl (vitamin B1) 100 mg 100 mg PO DAILY 05/16/23 05/20/23 History tablet cholecalciferol (vitamin D3) 25 25 mcg PO DAILY 05/17/23 05/20/23 History mcg (1,000 unit) capsule lisinopril 20 mg tablet 20 mg PO DAILY 05/17/23 05/20/23 History Allergies Allergy/AdvReac Type Severity Reaction Status Date / Time codeine Allergy Severe Gastrointestinal Verified 05/20/23 20:11 Upset Exam Narrative: Exam Narrative: General: No acute distress CV: Regular rate Respiratory: Breathing nonlabored on room air Abdomen: Mildly protuberant. Minimally tender to palpation. He has bowel sounds present. Incision is clean and dry without erythema. Const: Vital Signs, click to edit/add: Vital Signs - 24 hr 05/20/23 17:11 05/20/23 19:17 05/20/23 21:05 Temperature 98.4 F 99 F Pulse Rate [Right Pulse Oximeter] 68 71 78 Respiratory Rate 16 16 16 Blood Pressure [Ri ght Arm] 165/95 H Blood Pressure [Ri ght Upper Arm] 138/83 164/93 H Pulse Oximetry 94 94 98 Oxygen Delivery Me thod Room Air Room Air Room Air 05/20/23 21:05 05/20/23 22:51 05/21/23 02:48 Temperature 98.9 F 98.4 F Pulse Rate [Right Pulse Oximeter] 74 72 Respiratory Rate 16 20 16 Blood Pressure [Ri ght Arm] 153/82 H 159/72 H Blood Pressure [Ri ght Upper Arm] Pulse Oximetry 98 96 97 Oxygen Delivery Me thod Room Air Room Air Room Air 05/21/23 08:35 Temperature 97 F L Pulse Rate [Right Pulse Oximeter] 72 Respiratory Rate 14 Blood Pressure [Ri ght Arm] 149/88 H Blood Pressure [Ri ght Upper Arm] Pulse Oximetry 97 Oxygen Delivery Me thod Room Air Results Labs Labs: Abnormal lab results 05/20/23 05/20/23 05/21/23 Range/Units 17:52 19:28 06:00 RBC 4.12 L 3.89 L (4.30-5.90) m/uL Hgb 12.7 L 12.0 L (13.5-17.5) gm/dL Hct 35.2 L (37.0-53.0) % Lymph % (Auto) 15.1 L (20-44) % [place] % (Auto) 12.5 H 13.0 H (0.0-11.0) % Lymph # (Auto) 0.80 L (0.90-2.90) K/uL Sodium 131 L 132 L (135-149) mmol/L Glucose 149 H (60-115) mg/dL Urine Protein Trace A (Negative) Urine Ketones 3+ A (Negative) Urine Blood Trace-lysed A (Negative) Urine Bilirubin 2+ A (Negative) Diabetes panel 05/20/23 05/21/23 Range/Units 19:28 06:00 Sodium 131 L 132 L (135-149) mmol/L Potassium 4.5 4.1 (3.6-5.1) mmol/L Chloride 96 100 (96-114) mmol/L Carbon Dioxide 24 25 (20-32) mmol/L BUN 17 16 (7-30) mg/dL Creatinine 0.6 0.6 (0.5-1.5) mg/dL Glucose 112 149 H (60-115) mg/dL Calcium 8.9 8.4 (8.4-10.6) mg/dL Calcium panel 05/20/23 05/21/23 Range/Units 19:28 06:00 Calcium 8.9 8.4 (8.4-10.6) mg/dL Pituitary panel 05/20/23 05/21/23 Range/Units 19:28 06:00 Sodium 131 L 132 L (135-149) mmol/L Potassium 4.5 4.1 (3.6-5.1) mmol/L Chloride 96 100 (96-114) mmol/L Carbon Dioxide 24 25 (20-32) mmol/L BUN 17 16 (7-30) mg/dL Creatinine 0.6 0.6 (0.5-1.5) mg/dL Glucose 112 149 H (60-115) mg/dL Calcium 8.9 8.4 (8.4-10.6) mg/dL Adrenal panel 05/20/23 05/21/23 Range/Units 19:28 06:00 Sodium 131 L 132 L (135-149) mmol/L Potassium 4.5 4.1 (3.6-5.1) mmol/L Chloride 96 100 (96-114) mmol/L Carbon Dioxide 24 25 (20-32) mmol/L BUN 17 16 (7-30) mg/dL Creatinine 0.6 0.6 (0.5-1.5) mg/dL Glucose 112 149 H (60-115) mg/dL Calcium 8.9 8.4 (8.4-10.6) mg/dL All other labs normal. Imaging Abdomen CT scan report/results: report reviewed and image reviewed Additional studies: CT scan of the abdomen pelvis IMPRESSION: 1. Postsurgical changes of the anterior abdominal wall, compatible with recent hernia repair. Wide thin fluid collection in the surgical bed, likely represents a postoperative seroma/hematoma. Cannot entirely exclude superimposed infection/abscess. 2. Multiple dilated loops of small bowel with air-fluid levels with a smooth transition to decompressed distal ileum in the left lower quadrant. This is most compatible with a postoperative ileus. 3. Cholelithiasis. Please note that all CT scans at this facility use dose modulation, iterative reconstruction, and/or weight-based dosing when appropriate to reduce radiation dose to as low as reasonably achievable. Dictated by Jovani Sosa MD @ 05/20/2023 9:11:25 PM Assessment and Plan Assessment and plan (1) Ileus, postoperative: Problem comment: Appears to have postoperative ileus from hernia repair surgery. NPO, IV fluids, surgical consult Status: Acute (2) S/P repair of ventral hernia: Problem comment: with large ventralex mesh(retrorectus) 2020 and May 17 2023 Status: Acute Plan The patient is a 78-year-old male status post ventral hernia repair with likely postoperative ileus, now partially resolving. He is still mildly distended, but has had bowel movements today. -okay to slowly advance diet. -patient would like to discharge later today. I stated that he could do so only if he continued to pass gas and did not have any nausea. -avoid narcotic pain medicine if possible. -follow-up with Dr. Thomas as scheduled.
[2023-05-21 10:44] LABS: Slide Review Reflex No
[2023-05-21 10:47] VITALS: TEMP 36.1
[2023-05-21 13:05] VITALS: BP 150/92; PULSE 75; RESP 16; TEMP 36.1; O2SAT 95
[2023-05-21] MEDS: ONDANSETRON 2 MG/ML inj 4 MG IVP (14:05)
--- NOTE | 2023-05-21 14:28 | PC.NURSE ---
states pain and nausea. refused morphine. zofran with relief. requesting to see md. with much teaching still states he wants something done.
--- NOTE | 2023-05-21 15:21 | P.IMPN_ITS ---
Progress Note: A&P Assessment and plan (1) Ileus, postoperative: Problem details: Appears to have postoperative ileus from hernia repair surgery. Now having stools. Clear liquids and advance diet as tolerated. Continue IV fluids as patient is intermittently having increased pain and bloating. Status: Acute (2) S/P repair of ventral hernia: Problem details: with large ventralex mesh(retrorectus) 2020 and May 17 2023. Appears to have abdominal ileus after all abdominal surgeries Status: Acute (3) Disorders of fluid, electrolyte, and acid-base balance: Problem details: Continue to monitor and manage fluid and electrolyte abnormalities, hyponatremia, monitoring for 3rd space fluids, daily weight Status: Acute Plan Continue in hospital for IV fluids and monitoring of bowel function. Continue to monitor fluid status and electrolyte status. Time Spent With Patient Total time spent: Total time spent today is 40 minutes, 30 minutes in coordination of care discussing with patient, daughter, other providers ongoing evaluation management of postoperative Subjective Date Seen: 05/21/23 Interval history: 78-year-old male admitted to the hospital with postoperative ileus causing abdominal distension and pain and no bowel movement since abdominal hernia surgery, 4 days ago. Previous episodes of postop ileus of occurred for him with his hernia surgery about 2 years ago as well as many years ago. He thinks opiate pain medicines are primary cause for this. He has been avoiding opiates since admission. Pain is generally been well controlled but occasionally he gets increased pain. He has been ambulating in the hallway regularly Overnight he has had a few small bowel movements and 1 large bowel movement. He reports the large bowel movement came with some relief for his abdominal distension. He is voiding but thinks he is voiding less than he should be. He is not thirsty. He has continued to receive maintenance IV fluid at 125 mL/hour. He is drinking small amounts of clear liquids. He has no fever and no shortness of breath. One small emesis this afternoon. Exam Narrative: Exam Narrative: He is alert no distress. Breathing is unlabored. Lungs are clear to auscultation. Cardiovascular: S1, S2, irregular rhythm. Abdomen: Bowel sounds are present . Abdominal distension noted. Mid abdominal tenderness still present. No peritonitis. Incision is still clean and dry. Const: Vital Signs, click to edit/add: Vital Signs - 24 hr 05/20/23 17:11 05/20/23 19:17 05/20/23 21:05 Temperature 98.4 F 99 F Pulse Rate [Right Pulse Oximeter] 68 71 78 Respiratory Rate 16 16 16 Blood Pressure [Ri ght Arm] 165/95 H Blood Pressure [Ri ght Upper Arm] 138/83 164/93 H Pulse Oximetry 94 94 98 Oxygen Delivery Me thod Room Air Room Air Room Air 05/20/23 21:05 05/20/23 22:51 05/21/23 02:48 Temperature 98.9 F 98.4 F Pulse Rate [Right Pulse Oximeter] 74 72 Respiratory Rate 16 20 16 Blood Pressure [Ri ght Arm] 153/82 H 159/72 H Blood Pressure [Ri ght Upper Arm] Pulse Oximetry 98 96 97 Oxygen Delivery Me thod Room Air Room Air Room Air 05/21/23 08:35 05/21/23 10:47 05/21/23 13:05 Temperature 97 F L 97 F L 97 F L Pulse Rate [Right Pulse Oximeter] 72 75 Respiratory Rate 14 16 Blood Pressure [Ri ght Arm] 149/88 H 150/92 H Blood Pressure [Ri ght Upper Arm] Pulse Oximetry 97 95 Oxygen Delivery Me thod Room Air Room Air Documenting provider has reviewed patient's vital signs: yes Labs Labs: Laboratory Results - last 24 hr 05/20/23 05/20/23 05/21/23 17:52 19:28 06:00 WBC 5.42 4.54 RBC 4.12 L 3.89 L Hgb 12.7 L 12.0 L Hct 37.1 35.2 L MCV 90 91 MCH 31 31 MCHC 34 34 RDW Coeff of Teri 13.7 13.8 Plt Count 181 184 Neut % (Auto) 71.5 64.5 Lymph % (Auto) 15.1 L 20.5 [place] % (Auto) 12.5 H 13.0 H Eos % (Auto) 0.7 1.8 Baso % (Auto) 0.2 0.2 Neut # (Auto) 3.87 2.93 Lymph # (Auto) 0.80 L 0.93 [place] # (Auto) 0.70 0.60 Eos # (Auto) 0.04 0.08 Baso # (Auto) 0.01 0.01 Abs Immat Gran (auto) 0.00 0.00 Imm/Tot Granulo (auto) 0.0 0.0 Sodium 131 L 132 L Potassium 4.5 4.1 Chloride 96 100 Carbon Dioxide 24 25 Anion Gap 11 7 BUN 17 16 Creatinine 0.6 0.6 Estimated Creat Clear 54.05 54.05 Estimated GFR 98 98 Glucose 112 149 H Lactate 0.7 Calcium 8.9 8.4 Urine Color Yellow Urine Appearance Clear Urine pH 5.5 Ur Specific [place] >= 1.030 Urine Protein Trace A Urine Glucose (UA) Negative Urine Ketones 3+ A Urine Blood Trace-lysed A Urine Nitrite Negative Urine Bilirubin 2+ A Urine Urobilinogen 1.0 Ur Leukocyte Esterase Negative Urine RBC 0-2 Urine WBC 0-2 Ur Squamous Epith Cells Few Urine Bacteria None
[2023-05-21 15:40] VITALS: BP 152/91; PULSE 63; RESP 18; TEMP 37; O2SAT 99
[2023-05-21] MEDS: CALCIUM CARBONATE 500 MG CHEW PO (17:21)
--- NOTE | 2023-05-21 18:37 | PC.NURSE ---
Shift [id number]- Patient states pain is not that bad. He reports small stool this afternoon. Up independently and walks the halls. Bowel sounds active to hypoactive. Poor intake- tray of clears largely untouched, patient states disinterest. He complains of heartburn, tums given with relief.
[2023-05-21 19:00] VITALS: BP 139/80; PULSE 61; RESP 24; TEMP 36.7; O2SAT 95
[2023-05-21] MEDS: lisinopriL 20 MG TABLET PO (21:11)
[2023-05-21] MEDS: ATORVASTATIN CALCIUM 40 MG TABLET 80 MG PO (21:11)
--- NOTE | 2023-05-22 00:03 | PC.NURSE ---
Addendum entered by Nazanin Briones RN 05/22/23 00:18: IV occluded. IV removed and new 20 guage IV placed to left forearm. Original Note: Patient pleasant, alert and oriented. Independent in room. Had BM at 1915 and reports pressure in abdomen had greatly decreased after BM. Rated abdominal pain 2/10 at that time. Also had mild heartburn discomfort but tolerating. Has reported multiple small loose stools this evening.?
[2023-05-22 01:00] VITALS: BP 147/89; PULSE 64; RESP 16; TEMP 36.8; O2SAT 96
[2023-05-22] MEDS: BENZOCAINE/MENTHOL 1 EACH LOZENGE MUCOUS MEM (02:24)
[2023-05-22 04:15] VITALS: BP 133/76; RESP 18; TEMP 36.7; O2SAT 95
[2023-05-22 05:24] LABS: C.Difficile Negative (Negative); CDIFFEPI 027 PRESUMPTIVE NEGATIVE (Negative)
[2023-05-22] MEDS: 5 % DEXTROSE/0.9% SOD CHLORIDE 1,000 ML 125 ML IV (06:03)
[2023-05-22 06:40] LABS: Basophils Percent Auto 0.3 % (0.0-3.0); Eosinophils Percent Auto 1.8 % (0.0-7.0); Hematocrit 30.6 % (37.0-53.0); Hemoglobin* 10.4 gm/dL (13.5-17.5); Lymphocytes Percent Auto 21.5 % (20-44); Mean Corpuscular HGB Conc 34 gm/dL (32-36); Mean Corpuscular Hemoglobin 31 pg (26-34); Mean Corpuscular Volume 92 fL (80-100); Monocytes Percent Auto 14.9 % (0.0-11.0); Neutrophils Percent Auto 61.5 % (42.0-72.0); Platelet Count* 162 K/uL (140-440); RDW Coefficient of Variation % 13.7 % (11.5-15.5); Red Blood Count 3.34 m/uL (4.30-5.90); White Blood Count* 3.82 K/uL (4.50-11.00)
[2023-05-22 06:46] LABS: Slide Review Reflex No
--- NOTE | 2023-05-22 06:48 | PC.NURSE ---
END OF SHIFT NOTE: PT PLEASANT AND COOPERATIVE. A&Ox3. PT DENIES CP, SOB, N/V. AMBULATES INDEPENDENTLY. VSS ON RA; AFEBRILE. PT HAVING 5-6 LOOSE BM'S OVERNIGHT. STOOL SAMPLE SENT TO LAB. ABD BINDER IN PLACE. PT REPORTS ABD FEELING LESS DISTENDED AND BLOATED. PT HAD ACCIDENTAL BM INCONTINENCE D/T WAITING TOO LONG. PT IS CLEANED UP AND BRIEF ON. CALL LIGHT WITHIN PT?S REACH.?
[2023-05-22 07:02] LABS: Chloride* 103 mmol/L (96-114)
[2023-05-22 07:03] LABS: Sodium* 134 mmol/L (135-149)
[2023-05-22 07:05] LABS: Creatinine* 0.6 mg/dL (0.5-1.5); Est. Creatinine Clearance* 54.05; Estimated Glomerular Filt Rate 98 ml/min
[2023-05-22 07:06] LABS: Anion Gap 8 mEq/L (7-15); Blood Urea Nitrogen* 9 mg/dL (7-30); Calcium* 7.9 mg/dL (8.4-10.6); Carbon Dioxide* 23 mmol/L (20-32); Glucose* 143 mg/dL (60-115)
[2023-05-22 09:30] VITALS: BP 141/98; PULSE 62; RESP 18; TEMP 37; O2SAT 96
--- NOTE | 2023-05-22 10:17 | PC.NURSE ---
alert and orient. vs wnl except enc him to monitor bp. abd less distended. poss bs. poss flatus. having bms. denies nausea or emesis. deandre reg breakfast. voiding well per pt. discharge to home with son with discharge instructions. to
--- NOTE | 2023-05-22 10:50 | PM.DS1 ---
DS: Providers Provider Date Seen: 05/22/23 Date of admission: 05/20/23 21:05 Primary care physician: Not a Local Provider Admitting Clinician: Dean Zuluaga MD Attending Physician on discharge: Dean Zuluaga MD Date of Discharge: 05/22/23 DS: Diagnosis Discharge Diagnosis (1) Ileus, postoperative: Status: Acute Problem details: Appears to have postoperative ileus from hernia repair surgery. Now having stools. Clear liquids and advance diet as tolerated. Continue IV fluids as patient is intermittently having increased pain and bloating. (2) S/P repair of ventral hernia: Status: Acute Problem details: with large ventralex mesh(retrorectus) 2020 and May 17 2023. Appears to have abdominal ileus after all abdominal surgeries DS: Summary Hospital Course Hospital Course: 78-year-old male underwent ventral hernia repair with mesh 5 days ago. No immediate surgical complications. He was discharged to home the next day. Not long after he got home he started having some abdominal pain with abdominal distension and nausea. Since surgery he had not had a bowel movement or passed gas. He was admitted to the hospital where he was diagnosed with the postoperative ileus. Since admission he has had return of normal bowel function with multiple stools during the night last night. His abdominal distension and pain have resolved. He reports otherwise feeling well. Patient has a history of recurrent postoperative ileus as well as concern for intolerance of opioids causing this problem. He has stopped taking opioids since hospital admission. He reports his pain is well controlled. Time Spent with Patient Time attestation: Total time spent providing and/or coordinating discharge services: Time spent: Less than 30 minutes Exam Narrative: Exam Narrative: He is alert and appears in no distress. He is ambulating in the room without discomfort. Breathing is unlabored. Const: Vital Signs, click to edit/add: Vital Signs - 24 hr 05/21/23 13:05 05/21/23 15:40 05/21/23 19:00 Temperature 97 F L 98.6 F 98.0 F Pulse Rate [Right Pulse Oximeter] 75 63 61 Respiratory Rate 16 18 24 Blood Pressure [Ri ght Arm] 150/92 H 152/91 H 139/80 Pulse Oximetry 95 99 95 Oxygen Delivery Me thod Room Air Room Air Room Air 05/22/23 01:00 05/22/23 01:00 05/22/23 04:15 Temperature 98.2 F 98.1 F Pulse Rate [Right Pulse Oximeter] 64 64 Respiratory Rate 16 18 Blood Pressure [Ri ght Arm] 147/89 H 133/76 Pulse Oximetry 96 95 Oxygen Delivery Me thod Room Air Room Air 05/22/23 09:30 Temperature 98.6 F Pulse Rate [Right Pulse Oximeter] 62 Respiratory Rate 18 Blood Pressure [Ri ght Arm] 141/98 H Pulse Oximetry 96 Oxygen Delivery Me thod Room Air Documenting provider has reviewed patient's vital signs: yes DS: Data Data Completed and Pending Labs on day of discharge: Labs from last 24 hours 05/22/23 05/22/23 05:45 04:25 WBC 3.82 L RBC 3.34 L Hgb 10.4 L Hct 30.6 L MCV 92 MCH 31 MCHC 34 RDW Coeff of Teri 13.7 Plt Count 162 Neut % (Auto) 61.5 Lymph % (Auto) 21.5 [place] % (Auto) 14.9 H Eos % (Auto) 1.8 Baso % (Auto) 0.3 Neut # (Auto) 2.30 Lymph # (Auto) 0.80 L [place] # (Auto) 0.60 Eos # (Auto) 0.10 Baso # (Auto) 0.00 Abs Immat Gran (auto) 0.00 Imm/Tot Granulo (auto) 0.0 Sodium 134 L Potassium 4.0 Chloride 103 Carbon Dioxide 23 Anion Gap 8 BUN 9 Creatinine 0.6 Estimated Creat Clear 54.05 Estimated GFR 98 Glucose 143 H Calcium 7.9 L Stl C. diff Tox B Gene Negative Stl C. diff [id number] PRESUMPTIVE NEGATIVE Imaging CT scan - abdomen: Radiologist's impression: INDICATION: Hernia repair on 05/17/2023. dysuria, hematuria, post op ileus v. obstruction, DIVERTICULAR DISEASE OF SMALL INTESTINE, Gilbert`s SYNDROME TECHNIQUE: CT abdomen and pelvis acquired with 82 cc Isovue 370 IV contrast. Permanently recorded images are archived. COMPARISON: CT abdomen and pelvis 04/06/2023 FINDINGS: Lower chest: Mild atelectasis in the bases of the lower lobes. Coronary artery calcification. Liver: Unremarkable. Normal in size and attenuation. No suspicious masses. Gallbladder and bile ducts: Cholelithiasis. No inflammation or biliary ductal dilation. Pancreas: Unremarkable. No mass or inflammation. Spleen: Unremarkable. Normal in size. No masses. Adrenal glands: Unremarkable. No nodules. Kidneys, Ureters, and Bladder: Unremarkable. No suspicious masses, stones, or hydronephrosis. Unremarkable ureters and bladder. GI tract: Multiple dilated loops of small bowel with air-fluid levels, predominantly in the left te abdomen. The bowel loops measure up to 3.5 cm. There is a smooth transition to decompressed distal ileum in the left lower quadrant. The colon is decompressed. No pneumatosis. Normal appendix. Vasculature: Normal caliber abdominal aorta with severe atherosclerotic calcification. Mesenteric arteries are patent. Lymph nodes: No lymphadenopathy. Peritoneum/Abdominal Wall: Small volume pneumoperitoneum. Subcutaneous emphysema and inflammatory stranding about the anterior abdominal wall, particularly the midline. Wide thin fluid collection between the anterior abdominal wall musculature and the peritoneal lining in the anterior abdomen in the midline, measuring 9.3 cm 1.0 cm, series 2, image 80. Pelvis: Prostatomegaly. Bones: Unremarkable for age. IMPRESSION: 1. Postsurgical changes of the anterior abdominal wall, compatible with recent hernia repair. Wide thin fluid collection in the surgical bed, likely represents a postoperative seroma/hematoma. Cannot entirely exclude superimposed infection/abscess. 2. Multiple dilated loops of small bowel with air-fluid levels with a smooth transition to decompressed distal ileum in the left lower quadrant. This is most compatible with a postoperative ileus. 3. Cholelithiasis. Discharge Plan Discharge Disposition: Home, Self-Care Date of Admission: 05/20/23 21:05 Attending Provider on Discharge: Dean Zuluaga Consulting Providers: Vy Whitney Primary Care Provider: Provider,Not a Local Condition: Unchanged Anticipated Discharge Date/Time: 05/22/23 09:07 Discharge Medications: Continued atorvastatin [Lipitor] 80 mg tablet 80 mg PO DAILY aspirin 81 mg tablet,delayed release (DR/EC) 81 mg PO DAILY thiamine HCl (vitamin B1) 100 mg tablet 100 mg PO DAILY ipratropium bromide 42 mcg (0.06 %) spray,non-aerosol 2 spray INTRANASAL 3XD PRN hydrocodone-acetaminophen 5-325 mg tablet 1 tab PO Q6H PRN (Reason: pain) Qty: 25 0RF lisinopril 20 mg tablet 20 mg PO DAILY cholecalciferol (vitamin D3) 25 mcg (1,000 unit) capsule 25 mcg PO DAILY Discharge Orders: Discharge Order (Routine); Ordered 05/22/23 Ordered By: Dean Zuluaga Patient Education: Ileus (DC) Additional Instructions: Return to the emergency department if you get more abdominal pain bloating and vomiting. Activity Level: Activity as Tolerated Discharge Diet: Regular Follow Up Appointments: Provider,Not a Local [Primary Care Provider] - Forms: [employer] Info Instructions
== END 2023-05-22 10:00 | disposition home or self-care (01) | DRG 394 ==
LOC: ED 19:41 → MEDSURG 20:16
PROVIDERS: Internal Medicine; Admitting Provider Family Medicine; Emergency Provider Emergency Medicine Emergency Medical Services; Visit Provider Family Medicine
DX: K91.89 Other postprocedural complications and disorders of digestive system (principal); K56.7 Ileus, unspecified; I25.10 Atherosclerotic heart disease of native coronary artery without angina pectoris; Z98.890 Other specified postprocedural states; K43.2 Incisional hernia without obstruction or gangrene; Z86.79 Personal history of other diseases of the circulatory system
CPT/HCPCS: 36415; 51798; 74019; 74177; 80048; 81001; 83605; 85025; 87493; 99284; 99285; A9270; J2405; J7042; Q9967

== ENCOUNTER 2024-02-08 14:18 | Emergency (ER) | payer OTHER, SELFPAY ==
[2024-02-08 14:28] VITALS: BP 135/76; PULSE 63; RESP 18; TEMP 36.9; O2SAT 98; BMI 26.0
[2024-02-08 14:48] VITALS: O2SAT 95
--- NOTE | 2024-02-08 14:48 | CRLHL7_ITS ---
For Patients: As a result of the Century Cures Act, medical imaging exams and procedure reports are released immediately into your electronic medical record. You may view this report before your referring provider. If you have questions, please contact your health care provider. INDICATION: Epigastric pain. TECHNIQUE: CT abdomen and pelvis acquired with 95 cc Isovue 370 IV contrast. COMPARISON: May 20, 2023. FINDINGS: Lower chest: Please refer to same-day CT chest for further evaluation. Liver: Unremarkable. Normal in size and attenuation. No suspicious masses. Gallbladder and bile ducts: Cholelithiasis without cholecystitis. Pancreas: Unremarkable. No mass or inflammation. Spleen: Unremarkable. Normal in size. No masses. Adrenal glands: Unremarkable. No nodules. Kidneys: Tiny cortical hypodensities, too small to characterize. No suspicious masses, stones, or hydronephrosis. GI tract: Mild gastric antral wall thickening. Some hyperemia of few loops of small bowel in the anterior abdomen. Moderate colonic stool burden. Normal in caliber. No sign of mass or inflammation. Normal appendix. Vasculature: Aortoiliac arterial calcifications. Abdominal aorta is normal in caliber. Mesenteric arteries are patent. Lymph nodes: No lymphadenopathy. Peritoneum/Abdominal Wall: Prior ventral hernia repair with soft tissue thickening/scarring. No sign of mass or infiltration. No free air or significant free fluid. Pelvis: Prostatomegaly. Bones: Unremarkable for age. IMPRESSION: Mild gastric antral wall thickening. Low-grade gastritis not excluded. Mild hyperemia of few loops of small bowel in the anterior abdomen. Low-grade enteritis not excluded. Otherwise, no acute intra-abdominal/pelvic abnormality. Moderate colonic stool burden. Cholelithiasis without cholecystitis. Additional chronic findings as above. Please note that all CT scans at this facility use dose modulation, iterative reconstruction, and/or weight-based dosing when appropriate to reduce radiation dose to as low as reasonably achievable. Dictated by Luis Carlos Lawrence MD @ 02/08/2024 5:31:42 PM (Electronically Signed)
--- NOTE | 2024-02-08 14:48 | CRLHL7_ITS ---
For Patients: As a result of the Century Cures Act, medical imaging exams and procedure reports are released immediately into your electronic medical record. You may view this report before your referring provider. If you have questions, please contact your health care provider. INDICATION: Shortness of breath. TECHNIQUE: CT chest PE was acquired with 100 cc Omnipaque 350 IV contrast. COMPARISON: None. FINDINGS: Heart and vasculature: Contrast opacification of the pulmonary arterial tree is adequate. No sign of pulmonary embolism. Heart size is normal. Coronary artery calcifications. Thoracic aorta and pulmonary artery are normal in caliber. Lungs and pleura: Bibasilar peribronchial thickening with associated mosaic attenuation. No suspicious nodules or infiltrates. No pleural effusions, pleural thickening, or pneumothorax. Lymph nodes/mediastinum: No mediastinal, hilar, or axillary adenopathy. Chest wall: No masses. Upper abdomen: No acute or significant findings. Bones: Unremarkable for age. IMPRESSION: No pulmonary embolism. Bibasilar peribronchial thickening with mosaic attenuation, likely related to small vessel/airway disease including bronchitis or aspiration. Please note that all CT scans at this facility use dose modulation, iterative reconstruction, and/or weight-based dosing when appropriate to reduce radiation dose to as low as reasonably achievable. Dictated by Luis Carlos Lawrence MD @ 02/08/2024 5:23:42 PM (Electronically Signed)
--- NOTE | 2024-02-08 14:50 | ED.GENADULT ---
HPI - General Adult General Chief complaint: Abdominal Pain <Tonio Claudio MD - Last Filed: 02/08/24 14:54> Stated complaint: Upper abdom pain <Tonio Claudio MD - Last Filed: 02/08/24 14:54> Time Seen by Provider: 02/08/24 14:36 <Tonio Claudio MD - Last Filed: 02/08/24 14:54> History of Present Illness HPI narrative: [age] year white male was out in his garage doing some usual work and developed sudden shortness of breath and epigastric pain, worse if he took a deep breath or bent over. He has had a history of 2 cardiac stents, he notices more positional, if he pushes on his upper abdomen it hurts as well. He has not had any recent illness. He has had a history of postoperative ileus and surgical repair for that status post repair of ventral hernia. He is on baby aspirin daily. He has noticed no recent illness, no cough no fevers. No recent chest pain, no lower extremity swelling or edema no neurologic complaints. Presents to the ED via ambulance apparently for assessment. <Tonio Claudio MD - Last Filed: 02/08/24 14:54> Related Data Home medications: Home Medications ?Medication ?Instructions ?Recorded ?Confirmed aspirin 81 mg tablet,delayed 81 mg PO DAILY 11/17/22 02/08/24 release atorvastatin 80 mg tablet (Lipitor) 80 mg PO DAILY 11/17/22 02/08/24 ipratropium bromide 42 mcg (0.06 2 spray intranasal 3XD PRN 05/16/23 02/08/24 %) nasal spray thiamine HCl (vitamin B1) 100 mg 100 mg PO DAILY 05/16/23 02/08/24 tablet cholecalciferol (vitamin D3) 25 25 mcg PO DAILY 05/17/23 02/08/24 mcg (1,000 unit) capsule lisinopril 20 mg tablet 20 mg PO DAILY 05/17/23 02/08/24 mecobalamin (vitamin B12) 1,000 1,000 mcg PO QDAY 08/10/23 02/08/24 mcg chewable tablet Previous Rx's ?Medication ?Instructions ?Recorded ondansetron 4 mg disintegrating 4 mg PO Q6H #20 tabs 02/08/24 tablet <Tonio Claudio MD - Last Filed: 02/08/24 14:54> Allergies/adverse reactions: Allergies Allergy/AdvReac Type Severity Reaction Status Date / Time codeine Allergy Severe Gastrointestinal Verified 02/08/24 16:16 Upset <Tonio Claudio MD - Last Filed: 02/08/24 14:54> Review of Systems Status of ROS: Reports: 6 or more systems reviewed and unremarkable except as noted in History and below <Tonio Claudio MD - Last Filed: 02/08/24 14:54> [facility] Medical History: Medical History Incisional hernia ?K43.2 - Incisional hernia without obstruction or gangrene (ICD-10) Gilbert's syndrome ?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 coronary artery without angina pectoris (ICD-10) Atrial fibrillation with rapid ventricular response ?I48.91 - Unspecified atrial fibrillation (ICD-10) Bronchitis ?J40 - Bronchitis, not specified as acute or chronic (ICD-10) <Tonio Claudio MD - Last Filed: 02/08/24 14:54> Surgical History: Surgical History S/P repair of ventral hernia ?Z98.890 - Other specified postprocedural states (ICD-10) ?Z87.19 - Personal history of other diseases of the digestive system (ICD-10) Status post surgery ?Z98.890 - Other specified postprocedural states (ICD-10) Status post exploratory laparotomy ?Z98.890 - Other specified postprocedural states (ICD-10) <Tonio Claudio MD - Last Filed: 02/08/24 14:54> Family History: Family History Father Coronary artery disease <Tonio Claudio MD - Last Filed: 02/08/24 14:54> Social History: Social History Narrative: He lives in [place] with his . He does not smoke. He drinks 2 beers a day. He does not use recreational drugs. He still works buying and selling and repairing cars. Code status is full. and son are healthcare power of patent prosecution attorney What is your current living situation?: I presently have a place to live Problems where you live: no known problems Problems where you live details: n/a In the past 12 months, utilities in danger of being shut off: no In past 12 months, lack of transportation kept you from medical appts, meetings, work, or getting things needed for daily living: no In the past 12 mos, have been you worried that your food would run out before you had money to buy more?: never true In the past 12 mos, the food you bought just didn't last and you didn't have money to buy more?: never true Highest level of school completed/degree received: high school graduate Smoking Status: Never smoker Do you use any of these nicotine containing products: None Second hand tobacco smoke exposure: No How often do you have a drink containing alcohol: never How many standard drinks containing alcohol do you have on a typical day: 1 or 2 How often do you have six or more drinks on one occasion: Never AUDIT-C Alcohol total score: 0 Non-prescribed substance use: denies use Caffeine: Yes How often does anyone, including family, friends and others, physically hurt you: never How often does anyone, including family, friends and others, insult or talk down to you: never How often does anyone, including family, friends and others, threaten you with harm: never How often does anyone, including family, friends and others, scream or curse at you: never service: Yes <Tonio Claudio MD - Last Filed: 02/08/24 14:54> Exam Narrative: Exam Narrative: Objective: Vital signs are within normal limits Patient is alert orient x3 no distress no cyanosis When the patient does a slight set up he notices more pain in his epigastrium. HEENT is unremarkable neck is supple chest is clear heart rate and rhythm regular 2/6 systolic murmur murmur occasional ectopic beat noted abdomen bowel sounds hypoactive he has got some mild guarding in his epigastrium. Mild rigidity and tenderness in his upper abdomen. Extremities are no edema neurologic nonfocal good peripheral perfusion noted. <Tonio Claudio MD - Last Filed: 02/08/24 14:54> Const: Vital Signs, click to edit/add: Vital Signs - 24 hr 02/08/24 14:28 Temperature 98.4 F Pulse Rate [Pulse Oximeter] 63 Respiratory Rate 18 Blood Pressure [Ri ght Upper Arm] 135/76 Pulse Oximetry 98 Oxygen Delivery Me thod Room Air <Tonio Claudio MD - Last Filed: 02/08/24 14:54> Vital Signs, click to edit/add: Vital Signs - 24 hr 02/08/24 14:28 Temperature 98.4 F Pulse Rate [Pulse Oximeter] 63 Respiratory Rate 18 Blood Pressure [Ri ght Upper Arm] 135/76 Pulse Oximetry 98 Oxygen Delivery Me thod Room Air <Francisco Nye DO - Last Filed: 02/08/24 17:48> Course Vital Signs Vital signs: Initial Vital Signs Temperature 98.4 F 02/08/24 14:28 Temperature Source Temporal Artery Scan 02/08/24 14:28 Pulse Rate 63 02/08/24 14:28 Respiratory Rate 18 02/08/24 14:28 Blood Pressure 135/76 02/08/24 14:28 Blood Pressure Mean 95 02/08/24 14:28 Blood Pressure Position Sitting 02/08/24 14:28 Pulse Oximetry 98 02/08/24 14:28 Oxygen Delivery Method Room Air 02/08/24 14:28 Vital Signs Temperature 98.4 F 02/08/24 14:28 Pulse Rate 63 02/08/24 14:28 Respiratory Rate 18 02/08/24 14:28 Blood Pressure 135/76 02/08/24 14:28 Pulse Oximetry 98 02/08/24 14:28 Oxygen Delivery Method Room Air 02/08/24 14:28 Temperature 98.4 F 02/08/24 14:28 Pulse Rate 63 02/08/24 14:28 Respiratory Rate 18 02/08/24 14:28 Blood Pressure 135/76 02/08/24 14:28 Pulse Oximetry 98 02/08/24 14:28 Oxygen Delivery Method Room Air 02/08/24 14:28 <Tonio Claudio MD - Last Filed: 02/08/24 14:54> Initial Vital Signs Temperature 98.4 F 02/08/24 14:28 Temperature Source Temporal Artery Scan 02/08/24 14:28 Pulse Rate 63 02/08/24 14:28 Respiratory Rate 18 02/08/24 14:28 Blood Pressure 135/76 02/08/24 14:28 Blood Pressure Mean 95 02/08/24 14:28 Blood Pressure Position Sitting 02/08/24 14:28 Pulse Oximetry 98 02/08/24 14:28 Oxygen Delivery Method Room Air 02/08/24 14:28 Vital Signs Temperature 98.4 F 02/08/24 14:28 Pulse Rate 63 02/08/24 14:28 Respiratory Rate 18 02/08/24 14:28 Blood Pressure 135/76 02/08/24 14:28 Pulse Oximetry 98 02/08/24 14:28 Oxygen Delivery Method Room Air 02/08/24 14:28 Temperature 98.4 F 02/08/24 14:28 Pulse Rate 63 02/08/24 14:28 Respiratory Rate 18 02/08/24 14:28 Blood Pressure 135/76 02/08/24 14:28 Pulse Oximetry 98 02/08/24 14:28 Oxygen Delivery Method Room Air 02/08/24 14:28 <Francisco Nye DO - Last Filed: 02/08/24 17:48> Medical Decision Making MDM Narrative Medical decision making narrative: 78-year-old male with sudden onset of epigastric discomfort some shortness of breath associated and pain with motion and with palpation is upper abdomen. I think at this point a CT of his chest and abdomen be appropriate to rule out ruptured viscus, perforated gastric ulcer duodenal ulcer, rule out diverticulitis. I suspect the patient may have more of a free air issue as he really seems to have significant tenderness to palpation and some rigidity. Does not appear to be in his right upper quadrant consistent with a gallbladder issue. I think also get EKG, CTs as mention laboratory studies, IV fluid. The at this point the patient declines any medication. I would hold on aspirin given his epigastric complaint and pain. <Tonio Claudio MD - Last Filed: 02/08/24 14:54> Patient is a 78 year old male who was signed out to me pending imaging. Of note his lab work shows a total bilirubin of 3.1. He states he has had elevated bilirubin since he was in his 30s. Rest of his liver enzymes are normal and I do not believe further investigation into this is necessary. Troponin within normal limits. CBC and rest of CMP showed no concerning findings the EKG shows no concerning findings and seems unlikely to be ACS related. He did start having some back pain but he states that is chronic and not any different than his baseline. He states his abdominal pain is almost fully gone away. CT results returned showing likely gastroenteritis which consistent with his symptoms. He also might have some bronchitis. Denies any aspiration episodes. He is otherwise doing well at this time and is safe for discharge and he is agreeable to this plan. <Francisco Nye, DO - Last Filed: 02/08/24 17:48> Lab Data Labs: Lab Results 02/08/24 Range/Units 15:12 WBC 4.55 (4.50-11.00) K/uL RBC 4.31 (4.30-5.90) m/uL Hgb 13.3 L (13.5-17.5) gm/dL Hct 39.0 (37.0-53.0) % MCV 91 (80-100) fL MCH 31 (26-34) pg MCHC 34 (32-36) gm/dL RDW Coeff of Teri 14.2 (11.5-15.5) % Plt Count 161 (140-440) K/uL Neut % (Auto) 62.0 (42.0-72.0) % Lymph % (Auto) 25.5 (20-44) % [place] % (Auto) 11.0 (0.0-11.0) % Eos % (Auto) 1.3 (0.0-7.0) % Baso % (Auto) 0.2 (0.0-3.0) % Neut # (Auto) 2.82 (1.7-7.0) K/uL Lymph # (Auto) 1.16 (0.90-2.90) K/uL [place] # (Auto) 0.50 (0.00-0.90) K/UL Eos # (Auto) 0.06 (0.00-0.50) K/uL Baso # (Auto) 0.01 (0.00-0.30) K/uL Abs Immat Gran (auto) 0.00 (0.00-0.30) K/uL Imm/Tot Granulo (auto) 0.0 % Sodium 138 (135-149) mmol/L Potassium 4.5 (3.6-5.1) mmol/L Chloride 106 (96-114) mmol/L Carbon Dioxide 26 (20-32) mmol/L Anion Gap 6 L (7-15) mEq/L BUN 19 (7-30) mg/dL Creatinine 0.7 (0.5-1.5) mg/dL Estimated Creat Clear 56.00 Estimated GFR 94 ml/min Glucose 110 (60-115) mg/dL Calcium 9.0 (8.4-10.6) mg/dL Total Bilirubin 3.1 H (0.1-1.5) mg/dL Direct Bilirubin 0.0 (0.0-0.5) mg/dL AST 34 (12-35) U/L ALT 31 (4-50) U/L Alkaline Phosphatase 65 (40-150) U/L Troponin I < 0.01 L (0.01-0.04) ng/mL NT-Pro-B Natriuret Pep 93 pg/mL Total Protein 6.9 (6.0-8.3) g/dL Albumin 4.2 (3.3-5.0) g/dL <Tonio Claudio MD - Last Filed: 02/08/24 14:54> Lab Results 02/08/24 Range/Units 15:12 WBC 4.55 (4.50-11.00) K/uL RBC 4.31 (4.30-5.90) m/uL Hgb 13.3 L (13.5-17.5) gm/dL Hct 39.0 (37.0-53.0) % MCV 91 (80-100) fL MCH 31 (26-34) pg MCHC 34 (32-36) gm/dL RDW Coeff of Teri 14.2 (11.5-15.5) % Plt Count 161 (140-440) K/uL Neut % (Auto) 62.0 (42.0-72.0) % Lymph % (Auto) 25.5 (20-44) % [place] % (Auto) 11.0 (0.0-11.0) % Eos % (Auto) 1.3 (0.0-7.0) % Baso % (Auto) 0.2 (0.0-3.0) % Neut # (Auto) 2.82 (1.7-7.0) K/uL Lymph # (Auto) 1.16 (0.90-2.90) K/uL [place] # (Auto) 0.50 (0.00-0.90) K/UL Eos # (Auto) 0.06 (0.00-0.50) K/uL Baso # (Auto) 0.01 (0.00-0.30) K/uL Abs Immat Gran (auto) 0.00 (0.00-0.30) K/uL Imm/Tot Granulo (auto) 0.0 % Sodium 138 (135-149) mmol/L Potassium 4.5 (3.6-5.1) mmol/L Chloride 106 (96-114) mmol/L Carbon Dioxide 26 (20-32) mmol/L Anion Gap 6 L (7-15) mEq/L BUN 19 (7-30) mg/dL Creatinine 0.7 (0.5-1.5) mg/dL Estimated Creat Clear 56.00 Estimated GFR 94 ml/min Glucose 110 (60-115) mg/dL Calcium 9.0 (8.4-10.6) mg/dL Total Bilirubin 3.1 H (0.1-1.5) mg/dL Direct Bilirubin 0.0 (0.0-0.5) mg/dL AST 34 (12-35) U/L ALT 31 (4-50) U/L Alkaline Phosphatase 65 (40-150) U/L Troponin I < 0.01 L (0.01-0.04) ng/mL NT-Pro-B Natriuret Pep 93 pg/mL Total Protein 6.9 (6.0-8.3) g/dL Albumin 4.2 (3.3-5.0) g/dL <Francisco Nye DO - Last Filed: 02/08/24 17:48> Imaging Data CTA chest: Attestation: I have reviewed the pertinent imaging results. <Francisco Nye DO - Last Filed: 02/08/24 17:48> Radiologist's impression: No pulmonary embolism. Bibasilar peribronchial thickening with mosaic attenuation, likely related to small vessel/airway disease including bronchitis or aspiration. Please note that all CT scans at this facility use dose modulation, iterative reconstruction, and/or weight-based dosing when appropriate to reduce radiation dose to as low as reasonably achievable. Dictated by Luis Carlos Lawrence MD @ 02/08/2024 5:23:42 PM <Francisco Nye DO - Last Filed: 02/08/24 17:48> CT abdomen pelvis: Attestation: I have reviewed the pertinent imaging results. <Francisco Nye DO - Last Filed: 02/08/24 17:48> Radiologist's impression: Mild gastric antral wall thickening. Low-grade gastritis not excluded. Mild hyperemia of few loops of small bowel in the anterior abdomen. Low-grade enteritis not excluded. Otherwise, no acute intra-abdominal/pelvic abnormality. Moderate colonic stool burden. Cholelithiasis without cholecystitis. Additional chronic findings as above. Please note that all CT scans at this facility use dose modulation, iterative reconstruction, and/or weight-based dosing when appropriate to reduce radiation dose to as low as reasonably achievable. Dictated by Luis Carlos Lawrence MD @ 02/08/2024 5:31:42 PM <Francisco Nye DO - Last Filed: 02/08/24 17:48> ECG Data Attestation: I personally reviewed and interpreted this ECG as follows: <Francisco Nye DO - Last Filed: 02/08/24 17:48> Prior ECG tracings: available for review <Francisco Nye DO - Last Filed: 02/08/24 17:48> Interpretation: Normal sinus rhythm with a rate of 61 beats per minute, normal intervals, normal axis, no ST or T-wave abnormalities. Appears similar previous EKG on file <Francisco Nye DO - Last Filed: 02/08/24 17:48> Discharge Plan Discharge Clinical Impression: Abdominal pain, epigastric, History of coronary artery disease <Tonio Claudio MD - Last Filed: 02/08/24 14:54> Patient Disposition: Home, Self-Care <Tonio Claudio MD - Last Filed: 02/08/24 14:54> Condition: Improved <Tonio Claudio MD - Last Filed: 02/08/24 14:54> Instructions: Gastroenteritis (ED) <Tonio Claudio MD - Last Filed: 02/08/24 14:54> Additional Instructions: I believe the symptoms are all viral in nature. They will improve on their own over time but is important to stay well hydrated. If solid foods are causing more pain try eating clear liquids for the next few days until symptoms improve. I will also prescribe you Zofran to use as needed in case he do developed nausea. <Tonio Claudio MD - Last Filed: 02/08/24 14:54> Prescriptions: New ondansetron 4 mg tablet,disintegrating 4 mg PO Q6H Qty: 20 0RF No Action atorvastatin [Lipitor] 80 mg tablet 80 mg PO DAILY aspirin 81 mg tablet,delayed release (DR/EC) 81 mg PO DAILY mecobalamin (vitamin B12) 1,000 mcg tablet,chewable 1,000 mcg PO QDAY thiamine HCl (vitamin B1) 100 mg tablet 100 mg PO DAILY ipratropium bromide 42 mcg (0.06 %) spray,non-aerosol 2 spray INTRANASAL 3XD PRN lisinopril 20 mg tablet 20 mg PO DAILY cholecalciferol (vitamin D3) 25 mcg (1,000 unit) capsule 25 mcg PO DAILY <Tonio Claudio MD - Last Filed: 02/08/24 14:54> Follow Up/Referrals: Provider,Not a Local [Primary Care Provider] - <Tonio Claudio MD - Last Filed: 02/08/24 14:54> Stand Alone Forms: [employer] Info Instructions <Tonio Claudoi MD - Last Filed: 02/08/24 14:54>
[2024-02-08 15:31] LABS: Basophils Absolute Auto 0.01 K/uL (0.00-0.30); Basophils Percent Auto 0.2 % (0.0-3.0); Eosinophils Absolute Auto 0.06 K/uL (0.00-0.50); Eosinophils Percent Auto 1.3 % (0.0-7.0); Hemoglobin* 13.3 gm/dL (13.5-17.5); Lymphocytes Absolute Auto 1.16 K/uL (0.90-2.90); Lymphocytes Percent Auto 25.5 % (20-44); Mean Corpuscular HGB Conc 34 gm/dL (32-36); Mean Corpuscular Hemoglobin 31 pg (26-34); Mean Corpuscular Volume 91 fL (80-100); Neutrophils Absolute Auto 2.82 K/uL (1.7-7.0); Platelet Count* 161 K/uL (140-440); RDW Coefficient of Variation % 14.2 % (11.5-15.5); Red Blood Count 4.31 m/uL (4.30-5.90); White Blood Count* 4.55 K/uL (4.50-11.00)
[2024-02-08 15:38] LABS: Slide Review Reflex No
[2024-02-08 15:54] LABS: Albumin* 4.2 g/dL (3.3-5.0); Chloride* 106 mmol/L (96-114); Potassium* 4.5 mmol/L (3.6-5.1); Sodium* 138 mmol/L (135-149)
[2024-02-08 15:56] LABS: Anion Gap 6 mEq/L (7-15); Carbon Dioxide* 26 mmol/L (20-32); Creatinine* 0.7 mg/dL (0.5-1.5); Estimated Glomerular Filt Rate 94 ml/min
--- OUTSIDE RECORDS SUMMARY | 2024-02-08 15:56 | XMS_ITS | Clinical Summary ---
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 Gilbert syndrome 05/26/2018 10/10/2022 GERD (gastroesophageal reflux disease) 5 10/10/2022 Elevated bilirubin 10/03/2014 10/10/2022 Fatigue 10/02/2014 10/10/2022 Headache 10/02/2014 10/10/2022 Social History Tobacco Use Types Packs/Day Years Used Date Smoking Tobacco: Never Assessed Adolescent Education Answer Date Record ed Getting School Help Needed Not on file 03/06 Sex and Gender Information Value Date Recorded Sex Assigned at Not on file Gender Identity Not on file Sexual Orientation Not on file Last Filed Vital Signs Vital Sign Reading Time Taken Comments Blood Pressure 157/94 10/10/2022 5:00 PM CDT Pulse 64 10/10/2022 5:00 PM CDT Temperature 36.3 ??C (97.4 ??F) 10/10/2022 1:04 PM CD T Respiratory Rate 20 10/10/2022 5:00 PM CDT Oxygen Saturation 98% 10/10/2022 5:00 PM CDT Inhaled Oxygen Concentration - - Weight 76.6 kg (168 lb 14 oz) 10/10/2022 1:04 PM CDT Height 170.2 cm (5' 7) 10/10/2022 1:04 PM CDT Body Mass Index 26.45 10/10/2022 1:04 PM CDT Plan of Treatment Health Maintenance Due Date Last Done Comments ADVANCE CARE PLANNING 1944 ANNUAL REVIEW OF HM ORDERS 1944 LIPID 1944 HEPATITIS C SCREENING 1962 FALL RISK ASSESSMENT 2009 RSV VACCINE (1 - 1-dose 75+ series) 2019 MEDICARE ANNUAL WELLNESS VISIT 04/09/2023 04/09/2022, 03/04/2020 PHQ-2 (once per calendar year) 2023 COVID-19 Vaccine (3 - 2022- season) 2024 08/09/2020, 07/19/2020 INFLUENZA VACCINE (#1) 2024 , 04/05/2021, 02/17/2020, Additional history exists GLUCOSE 10/10/2025 10/10/2022, 09/27, 10/10/2022 DTAP/TDAP/TD IMMUNIZATION (3 - Td or Tdap) 03/04/2031 03/04/2021, 03/13/2012 Pneumococcal Vaccine: 65+ Years Completed 10/02/2014, 06/26/2010 ZOSTER IMMUNIZATION Completed 01/21/2019, 09/12/2018, 06/04/2015 HPV IMMUNIZATION Aged Out No longer e ligible based on patient's age to complete this topic MENINGITIS IMMUNIZATION Aged Out No l onger eligible based on patient's age to complete this topic RSV MONOCLONAL ANTIBODY Aged Out No l onger eligible based on patient's age to complete this topic Procedures Procedure Name Priority Date/Time Associated Diagnosis Comments BASIC METABOLIC PANEL STAT 10/10/2022 1:14 PM CDT from Last 3 Months or Most Recently Relevant to Health Maintenance Results * Basic metabolic panel (BMP) (10/10/2022 1:14 PM CDT) Sodium 137 136 - 145 mmol/L 10/10/2022 1:47 PM CDT [facility] Potassium 4.5 3.4 - 5.3 mmol/L 10/10/2022 1:47 PM CDT [facility] Chloride 103 98 - 107 mmol/L 10/10/2022 1:47 PM CDT [facility] Carbon Dioxide (CO2) 27 22 - 29 mmol/L 10/10/2022 1:47 PM CDT [facility] Anion Gap 7 7 - 15 mmol/L 10/10/2022 1:47 PM CDT [facility] Urea Nitrogen 13.4 8.0 - 23.0 mg/dL 10/10/2022 1:47 PM CDT [facility] Creatinine 0.74 0.67 - 1.17 mg/dL 10/10/2022 1:47 PM CDT [facility] Calcium 8.8 8.8 - 10.2 mg/dL 10/10/2022 1:47 PM CDT [facility] Glucose 97 70 - 99 mg/dL 10/10/2022 1:47 PM CDT [facility] GFR Estimate >90 >60 mL/min/1.7 3m2 10/10/2022 1:47 PM CDT [facility] Comment: eGFR calculated using 2020 CKD-EPI equation. eGFR calculated using 2020 CKD-EPI equation. Blood BLOOD SPECIMEN / Unknown Venipuncture / Unknown 10/10/2022 1:14 PM CDT 10/10/2022 1:26 PM CDT Ambrosio Samaniego MD LAB - BLOOD ORDERABL [facility] [address] [facility] (1st floor, no room number) [place] [address], [facility] [phone] from Last 3 Months or Most Recently Relevant to Health Maintenance Care Teams [employer] Inspector Relationship Specialty Start Date End Date John Salinas MD PCP - General Internal Medicine 10/10/22
--- OUTSIDE RECORDS SUMMARY | 2024-02-08 15:56 | XMS_ITS | Referral Summary ---
Author Organization [facility] Address [address] [place] [id number] Care Team Providers Care Reservoir Engineering Manager Name Role Phone John Salinas MD Primary [...] 10/10/2022 1:04 PM CDT Plan of Treatment Not on file Procedures Procedure Name Priority Date/Time Associated Diagnosis Comments BASIC METABOLIC PANEL STAT 10/10/2022 1:14 PM CDT from Last 3 Months or Most Recently Relevant to Health Maintenance Results * Basic metabolic panel (BMP) (10/10/2022 1:14 PM CDT) Sodium 137 136 - 145 mmol/L 10/10/2022 1:47 PM CDT LABORATORY Potassium 4.5 3.4 - 5.3 mmol/L 10/10/2022 1:47 PM CDT LABORATORY Chloride 103 98 - 107 mmol/L 10/10/2022 1:47 PM CDT LABORATORY Carbon Dioxide (CO2) 27 22 - 29 mmol/L 10/10/2022 1:47 PM CDT LABORATORY Anion Gap 7 7 - 15 mmol/L 10/10/2022 1:47 PM CDT LABORATORY Urea Nitrogen 13.4 8.0 - 23.0 mg/dL 10/10/2022 1:47 PM CDT LABORATORY Creatinine 0.74 0.67 - 1.17 mg/dL 10/10/2022 1:47 PM CDT LABORATORY Calcium 8.8 8.8 - 10.2 mg/dL 10/10/2022 1:47 PM CDT LABORATORY Glucose 97 70 - 99 mg/dL 10/10/2022 1:47 PM CDT LABORATORY GFR Estimate >90 >60 mL/min/1.7 3m2 10/10/2022 1:47 PM CDT LABORATORY Comment: eGFR calculated using 2020 CKD-EPI equation. eGFR calculated using 2020 CKD-EPI equation. Blood BLOOD SPECIMEN / Unknown Venipuncture / Unknown 10/10/2022 1:14 PM CDT 10/10/2022 1:26 PM CDT Ambrosio Samaniego MD LAB - BLOOD ORDERABL ES LABORATORY [facility] [address] Lab (1st floor, no room number) [place] [address], [facility] [phone] from Last 3 Months or Most Recently Relevant to Health Maintenance Care Teams Reservoir Engineering Manager Relationship Specialty Start Date End Date John Salinas MD PCP - General Internal Medicine 10/10/22
--- OUTSIDE RECORDS SUMMARY | 2024-02-08 15:56 | XMS_ITS | Clinical Summary ---
Author Organization [employer] [facility] Address [place], [place] [address] Care Team Providers Care Senior Quantity Surveyor Name Role Phone John Salinas MD Primary Care Provider Allergies Active Allergy Reactions Criticality Noted Date Comments Codeine 08/25/2009 Medications Medication Sig Dispensed Refills Start Date End Date Status cyanocobalamin (VITAMIN B12) 500 mcg tablet Take 2 tablets by mouth once daily. 1 tablet 0 10/02/2014 Active cholecalciferol (VITAMIN D) 1,000 unit tablet Take 1 tablet by mouth once daily. 0 02/25/2015 Active medication order composer Allergy pill once daily - [employer] from [employer] 0 02/25/2015 Active ascorbic acid, vitamin C, (VITAMIN C) 1,000 mg tablet Take 1 tablet by mouth once daily. 0 04/29/2017 Active thiamine (VITAMIN B1) 100 mg tablet Daily Active aspirin chewable 81 mg chewable tablet Chew 1 Tablet (81 mg) by mouth once daily with a meal. 0 04/09/2022 Active lisinopriL (PRINIVIL; ZESTRIL) 20 mg tabletIndications: Essential hypertension Take 1 Tablet (20 mg) by mouth once daily. 90 Tablet 3 07/14/2023 Active sildenafil citrate (VIAGRA) 100 mg tabletIndications: Erectile dysfunction, unspecified erectile dysfunction type Take 1 Tablet (100 mg) by mouth once daily if needed for Erectile Dysfunction. Take 30min to 4 hours before sexual activity. Max 100mg/24hr. 30 Tablet 11 07/14/2023 Active atorvastatin (LIPITOR) 80 mg tabletIndications: Disorder of lipoid metabolism TAKE 1 TABLET BY MOUTH ONCE DAILY. 90 Tablet 2 10/21/2023 Active ipratropium (ATROVENT NASAL) 42 mcg (0.06 %) nasal sprayIndications:V asomotor rhinitis INHALE 2 SPRAYS TO BOTH NOSTRILS 3 TIMES DAILY IF NEEDED FOR RHINITIS. 45 mL 1 02/05/2024 Active ipratropium (ATROVENT NASAL) 42 mcg (0.06 %) nasal sprayIndications:V asomotor rhinitis Inhale 2 Sprays to both nostrils 3 times daily if needed for Rhinitis. 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 GERD (gastroesophageal reflux disease) 5 Elevated bilirubin 10/03/2014 Arthralgia 10/02/2014 Headache 10/02/2014 Fatigue 10/02/2014 Physical exam, annual 09/28/2013 Screening for prostate cancer 09/28/2013 Screening for colon cancer 09/28/2013 STATUS POST STENTING OF THE CIRCUMFLEX IN 2002 DYSLIPIDEMIA CORONARY ARTERY DISEASE LOWER LEG MYALGIAS, OCCASIONAL Resolved Problems Problem Noted Date Diagnosed Date Resolved Date BORDERLINE HYPERLIPIDEMIA Encounters Date Type Department Care Team Description 02/08/2024 2:55 PM CDT Office Visit [facility] [address] [place] [address] Loretta Berman, Chest Pain; Abdominal Pain 02/08/2024 2:00 PM CDT Nurse/Clinic Staff Only [address] [address] Chest Pain; Abdominal Pain 02/08/2024 Nurse Triage [address] [address] Loretta Berman, Abdominal Pain 02/08/2024 Travel 02/02/2024 Refill [facility] [address] [place] [address] John Salinas MD Refill Request (Ipratropium) 12/14/2023 8:15 AM CDT Ancillary Procedure [facility] [address] [place] [facility] [address] [place] [address] 12/14/2023 Travel 12/08/[address] [place] [phone] John Salinas MD Questions (regarding insurance coverage) 12/07/[address] [place] [phone] John Salinas MD Prior Authorization (PEER to PEER NEEDED - MRA NECK) 12/05/[address] [place] [phone] John Salinas MD Questions (prior auth) 11/25/[address] [place] [address] John Salinas MD Concerns (insurance and a scan) 11/21/2023 8:10 AM CDT Office Visit [address] [place] [phone] John Salinas MD Prostate Problem (Pain in right testicle x 2 weeks ago. ) 11/21/2023 Travel from Last 3 Months Immunizations Name Administration Dates Next Due COVID-19 vaccine ([employer] 30mcg/0.3mL) EDUIN GRACIA 08/09/2020,07/19/2020 Influenza, High-dose Inactivated 03/04/2018,02/27,06/04/2015 Influenza, High-dose Quadriv alent Inactivated 04/06/2023,04/18/2022 Influenza, IIV3 (Age >=3 years) 03/03/2011 Influenza, Inactivated AIIV4 (Age 65+ Years) Preserv Free 04/05/2021 Influenza, Inactivated IIV3 (Age 65+ Years) Preserv Free 02/17/2020,03/05/2019,03/04/2018,2016 Pneumococcal Poly,23-Valent (Pneumovax) 06/26/2010 Pneumococcal conj 13-Valent (Prevnar 13) 10/02/2014 Td (Age >=7 Years) 03/04/2021 Tdap 03/13/2012 Zoster (Shingrix-RZV, recombinant) 01/21/2019, Zoster (Zostavax-ZVL, live) 06/04/2015 Family History Medical History Relation Name Comments Genetic Other 1 The patient's f ather had his first AL at age 50, he is . He has no other history of coronary artery disease in any of his brothers or sisters, or any other relatives. Heart Disease Other 2 Osteoporosis Other 3 Relation Name Status Comments Other 1 Other 2 Other 3 Social History Tobacco Use Types Packs/Day Years Used Date Smoking Tobacco: Former Cigarettes Q uit: 05/30/1969 Smokeless Tobacco: Never Comments:Quit smokin Alcohol Use Standard Drinks/Week Comments Yes 14 (1 standard drink = 0.6 oz pure alcohol) Alcoholic Drinks/day: 2 beers daily PHQ-2 Answer Date Recorded PHQ-2 TOTAL SCORE 0 07/14/2023 Social Connections Answer Date Recorded Frequency of Communication with Friends and Fami ly 0 05/02/2023 Financial Resource Strain Answer Date R ecorded Difficulty of Paying Living Expenses 3 05/02/2023 Difficulty of Paying Living Expenses Not on file 05/02/2023 Food Insecurity Answer Date Recorded Worried About Running Out of Food in the Last Ye ar 1 05/02/2023 Transportation Needs Answer Date Record ed Lack of Transportation (Medical) 1 05/02/2023 Housing Stability Answer Date Recorded Unable to Pay for Housing in the Last Year 1 05/02/2023 Sex and Gender Information Value Date Recorded Sex Assigned at Not on file Gender Identity Not on file Sexual Orientation Not on file Obstetrics History Last Filed Vital Signs Vital Sign Reading Time Taken Comments Blood Pressure 157/83 02/08/2024 1:34 PM CDT Pulse 69 02/08/2024 1:34 PM CDT Temperature 36.4 ??C (97.6 ??F) 07/14/2023 1:13 PM CS T Respiratory Rate 18 05/02/2023 8:40 AM BOTTLER HELPER Oxygen Saturation 96% 02/08/2024 1:34 PM CDT Inhaled Oxygen Concentration - - Weight 76.8 kg (169 lb 6.4 oz) 11/21/2023 8:09 A M CDT Height 167.6 cm (5' 6) 11/21/2023 8:09 AM CDT Body Mass Index 27.34 11/21/2023 8:09 AM CDT Plan of Treatment Health Maintenance Due Date Last Done Comments Hepatitis C screening for ag e 18-79 1963 RSV vaccine for adults or (1 - 1-dose 60+ series) 2004 COVID-19 vaccine series (2022- season) 2024 08/09/2020, 07/19/2020 Influenza for age 65+ 01/29/2024 04/06/2023 , 04/18/2022, 04/05/2021, Additional history exists Depression screening for age 12+ 07/14/2024 07/14/2023, 05/06/2023, 05/02/2023, Additional history exists Medicare Wellness for age 65+ 07/14/2024, 04/09/2022, 03/04/2020, Additional history exists BMI (ht and wt on same day) for age 18+ 11/20/2024 11/21/2023, 07/14/2023, 05/02/2023, Additional history exists Tetanus booster 03/04/2031 03/04/2021, 02/27, 02/03/2012 (Completed outside of [facility]) Tdap Completed 03/13/2012 Pneumococcal series for age 65+ Completed , 06/26/2010 Zoster (shingles) series for age 50+ Completed 01/21/2019, 09/12/2018, 06/04/2015 Procedures Procedure Name Priority Date/Time Associated Diagnosis Comments NV READING EKG - NO CHARGE, COMP ONLY Routine 02/08/2024 Chest pain in adult EKG 12 LEAD Routine 02/08/2024 Chest pain in adult NV ECG ROUTINE ECG W/LEAST 12 LDS W/I&R Routine 02/08/2024 Chest pain in adult MR HEAD BRAIN WO Routine 12/14/2023 8:32 AM CDT Glossopharyngeal neuralgia Nonintractable episodic headache, unspecified headache type SEDIMENTATION RATE Routine 11/21/2023 8: 51 AM CDT Nonintractable episodic headache, unspecified headache type CREATININE Routine 11/21/2023 8:51 AM CDT Glossopharyngeal neuralgia from Last 3 Months Results * NV ECG ROUTINE ECG W/LEAST 12 LDS W/I&R (02/08/2024) Loretta Berman DO [facility] - CARDIOVASCULAR SYSTEM SERVICES * EKG 12 LEAD (02/08/2024) Loretta Berman DO EKG ORD * NV READING EKG - NO CHARGE, COMP ONLY (02/08/2024) Loretta Berman DO [facility] - PROVIDER READI NGS * MR HEAD BRAIN WO (12/14/2023 8:32 AM CDT) Anatomical Region Laterality Modality BRAIN, HEAD Magnetic Resonan ce 12/14/2023 9:29 AM CDT Narrative 12/14/2023 9:29 AM CDT For Patients: ??As a result of the Cures Act, medical imaging exams and procedure reports are released immediately into your electronic medical record. ??You may view this report before your referring provider. ??If you have questions, please contact your health care provider. Indication: Headaches. Technique: Multisequence multiplanar MRI of the brain without the use of intravenous contrast. Comparison: None available. Findings: No evidence of acute ischemia. Scattered foci of T2 prolongation within the periventricular and subcortical white matter of both cerebral hemispheres. T2 hyperintense focus within the right inferior frontal lobe with surrounding FLAIR hyperintensity, extension to the cortex, and no significant associated mass effect, likely reflecting encephalomalacia/gliosis. Mild diffuse cerebral volume loss. No ventricular obstruction. Flow voids of the larger intracranial arteries are preserved. Normal calvarial bone marrow signal intensity. Unremarkable orbits. Mild diffuse paranasal sinus mucosal thickening. Impression: 1. No acute intracranial abnormality. 2. Ovoid T2 hyperintense focus in the right inferior frontal lobe likely reflecting encephalomalacia/gliosis as sequela of prior insult. 3. Scattered foci of T2 prolongation within the supratentorial white matter, nonspecific, but typical of mild chronic small vessel ischemic changes. 4. Mild diffuse parenchymal volume loss without lobar predilection. Dictated by Luke Ortega MD @ 12/14/2023 9:29:13 AM (Electronically Signed) Procedure Note Travis Ortega MD - 12/14/2023 For Patients: As a result of the Cures Act, medical imagingexams and procedure reports are released immediately into your electronicmedical record. You may view this report before your referring provider.If you have questions, please contact your health care provider. Indication: Headaches. Technique: Multisequence multiplanar MRI of the brain without the use of intravenouscontrast. Comparison: None available. Findings: No evidence of acute ischemia. Scattered foci of T2 prolongation withinthe periventricular and subcortical white matter of both cerebralhemispheres. T2 hyperintense focus within the right inferior frontal lobewith surrounding FLAIR hyperintensity, extension to the cortex, and nosignificant associated mass effect, likely reflectingencephalomalacia/gliosis. Mild diffuse cerebral volume loss. No ventricular obstruction. Flow voidsof the larger intracranial arteries are preserved. Normal calvarial bone marrow signal intensity. Unremarkable orbits. Milddiffuse paranasal sinus mucosal thickening. Impression: 1. No acute intracranial abnormality. 2. Ovoid T2 hyperintense focus in the right inferior frontal lobe likelyreflecting encephalomalacia/gliosis as sequela of prior insult. 3. Scattered foci of T2 prolongation within the supratentorial whitematter, nonspecific, but typical of mild chronic small vessel ischemicchanges. 4. Mild diffuse parenchymal volume loss without lobar predilection. Dictated by Luke Ortega MD @ 12/14/2023 9:29:13 AM (Electronically Signed) John Salinas MD MR * SEDIMENTATION RATE (11/21/2023 8:51 AM CDT) Pathologist [facility] SEDIMENTATION RATE 2 <20 mm/hr 2023 9:05 AM CDT [facility] Blood BLOOD SPECIMEN / Unknown Venipuncture / Unknown 11/21/2023 8:51 AM CDT 11/21/2023 8:51 AM CDT John Salinas MD HEMATOLOGY Performing Organization Address [facility] Co de Phone Number [facility] [address] [place] [address] * CREATININE (11/21/2023 8:51 AM CDT) eGFR >90 >90 mL/min/1.7 3m2 11/21/2023 9:25 AM CDT [facility] Comment:As of 2021, eG FR is calculated by the CKD-EPI creatinine equation without race adjustment. ??eGFR can be influenced by muscle mass, exercise, and diet. ??The reported eGFR is an estimation only and is only applicable if the renal function is stable. CREATININE 0.72 0.70 - 1.20 mg/dL 11/21/2023 9:25 AM CDT [facility] Blood BLOOD SPECIMEN / Unknown Venipuncture / Unknown 11/21/2023 8:51 AM CDT 11/21/2023 8:51 AM CDT John Salinas MD CHEMISTRY Performing Organization Address [facility] Co de Phone Number [facility] [address] [place] [phone] from Last 3 Months Care Teams Senior Quantity Surveyor Relationship Specialty Start Date End Date John Salinas MD [address] [place] [address] [address] [place] [address] PCP - General Internal Medicine 02/25/15
[2024-02-08 15:57] LABS: Alanine Aminotransferase* 31 U/L (4-50); Alkaline Phosphatase* 65 U/L (40-150); Aspartate Amino Transferase* 34 U/L (12-35); Bilirubin Total* 3.1 mg/dL (0.1-1.5); Blood Urea Nitrogen* 19 mg/dL (7-30); Glucose* 110 mg/dL (60-115); Total Protein* 6.9 g/dL (6.0-8.3)
[2024-02-08 16:08] LABS: NT Pro B Type NatriureticPept* 93 pg/mL
[2024-02-08 16:16] LABS: Troponin I* < 0.01 ng/mL (0.01-0.04)
== END 2024-02-08 18:13 | disposition home or self-care (01) ==
PROVIDERS: Family Medicine; Emergency Provider Student in an Organized Health Care Education/Training Program
DX: R10.13 Epigastric pain (principal); R06.02 Shortness of breath
CPT/HCPCS: 36415; 71275; 74177; 80048; 80076; 83880; 84484; 85025; 93005; 94761; 99283; 99284; 99285; Q9967